=== PATIENT | female | born 1950 | race Caucasian/White ===

== ENCOUNTER → 2018-03-21 09:14 | Outpatient (CLI) | payer OTHER, SELFPAY | PROVIDERS: Visit Provider Physical Medicine & Rehabilitation | DX: M47.27 Other spondylosis with radiculopathy, lumbosacral region (principal); Z53.20 Procedure and treatment not carried out because of patient's decision for unspecified reasons; F40.240 Claustrophobia; M43.16 Spondylolisthesis, lumbar region; M48.00 Spinal stenosis, site unspecified ==

== ENCOUNTER 2018-04-25 09:01 | Outpatient (CLI) | payer OTHER, SELFPAY ==
[2018-04-25] VITALS (7 sets, daily range): BP systolic 143–174; BP diastolic 64–94; PULSE 88–104; RESP 16–20; TEMP 36.5; O2SAT 96–99
--- NOTE | 2018-04-25 09:02 | DI.RAD.S_ITS ---
PROCEDURE: PAIN L/SI FACET INJ/BLK 1STL INDICATIONS: Lumbosacral spondylosis FINDINGS: Fluoroscopic spot filming was performed to verify placement of spinal needles at the right-sided L4-5 and L5-S1 facet joint level(s), as labeled on the films. Appropriate location(s) of the needle tip(s) was confirmed by injection of iodinated contrast. IMPRESSION: Successful facet joint localization on the right at L4-5 and L5-S1 for facet injection. Dictated by: Arnoldo Magana M.D. on 04/25/2018 at 10:22 Approved by: Arnoldo Magana M.D. on 04/25/2018 at 10:23
--- NOTE | 2018-04-25 09:22 | P.PCN_ITS ---
Procedures Date/Time Date of procedure: 04/25/18 Time of procedure: 09:20 General Procedure description: PREOP DIAGNOSIS 1. FACET ARTHROPATHY, 2. AXIAL LBP, 3. MULTILEVEL DDD, POST OP DIAGNOSIS 1. FACET ARTHROPATHY, 2. AXIAL LBP, 3. MULTILEVEL DDD, PROCEDURES 1. FLUORSCOPICALLY GUIDED CONTRAST CONTROLLED FACET JOINT INJECTIONS RIGHT L4/5, L5/S1 SURGEON: Bo Roland, DO INDICATIONS Sofía is referred for treatment of right Axial LBP FINDINGS Multilevel Facet Arthropathy with Clinically significant axial LBP DESCRIPTION OF PROCEDURE Fluoroscopically guided, contrast-controlled right L4/5, L5/S1 facet joint injections. Following denial of allergy and review of potential side effects and complications, including, but not necessarily limited to, infection, allergic reaction, local tissue breakdown, stroke, temporary or permanent nerve injury, paralysis, and possible , the patient indicated that the patient understood and agreed to proceed. An informed consent document was signed by the patient, witnessed by a nurse, and placed in the patient's chart. Additionally, other treatment options including medications, modalities, and physical therapy were reviewed with the patient. After review of previous anaesthesic history and IV conscious sedation the patient was deemed safe to proceed with todays procedure with IV conscious sedation as ASA class II designation. Safety time-out was performed to confirm patient ID, procedure to be performed and site of procedure. IV sedation was accomplished with a combination of 3mg of Versed and 50mcg of Fentanyl was administered by the RN after DO order, titrated to patient comfort during the course of the procedure while the patient remained responsive to all verbal commands. In the prone position, following sterile prep and drape of the lumbar region, the posterior aspect of the right L4/5, L5/S1 facet joints were identified fluoroscopically. The skin was anesthetized via a 25-gauge 1.5-inch needle with 1% lidocaine solution into the corresponding facet joints. At this point, a 22- gauge 3.5-inch spinal needle was atraumatically introduced and advanced under fluoroscopic guidance into the corresponding facet joints. Following negative aspiration, injections of approximately 0.2-cc of Isovue 200 confirmed interarticular placement without vascular uptake. Radiological data, including multiple fluoroscopic views of the lumbosacral spine, reveal a spinal needle at the right L4/5, L5/S1 facet joints. Subsequent views show flow of contrast material both superiorly and inferiorly within the joint space without vascular or intrathecal uptake. At this point, a total of 0.5 cc including a mixture of 0.25cc Marcaine and 0.25cc betamethasone was injected without complication into each of the corresponding facet joints. The procedure tolerated the procedure well without signs or symptoms of complications prior to transfer to the recovery area continued monitoring without incident. The patient was then transferred to the recovery area where they were observed for an appropriate period of time after the injection. The patient reported a VAS score of 7 prior to the procedure and a post-procedure VAS of 0. Total Fluoroscopy Time: 12.7 seconds Total Conscious Sedation Time: 24min POST OP INSTRUCTIONS The patient was provided a Pain Log to continue to record their response to the target-specific procedure prior to follow-up visit with their referring physician. Additionally, specific post-injection care instructions and a contact number to our office were provided if concerns arise regarding possible complications associated with the procedure are suspected. Bo Roland, Complications: none
[2018-04-25] MEDS: MIDAZOLAM 5 MG/5 ML VIAL IV (09:25)
[2018-04-25] MEDS: fentaNYL 100 MCG/2 ML INJ 50 MCG IV (09:30)
[2018-04-25] MEDS: LIDOCAINE 1% 20 ML INJ 10 ML INJ (09:39)
[2018-04-25] MEDS: BUPIVACAINE 0.5% (PF) VIAL 2 ML INJ (09:39)
[2018-04-25] MEDS: IOPAMIDOL 15 ML VIAL 3 ML INJ (09:39)
[2018-04-25] MEDS: BETAMETHASONE 30 MG/5 ML MDV 12 MG INJ (09:40)
--- NOTE | 2018-04-25 09:49 | PC.NURSE ---
ACCEPTED CARE OF PT IN STABLE CONDITION IN POST PROC AREA.
--- NOTE | 2018-04-25 09:51 | PC.NURSE ---
pt tolerated procedure, assisted pt off table with 2 person standby assist. Transferred pt to pre procedure room via wheelchair for resumed monitoring with Era PUENTES.
== END 2018-04-25 10:30 | disposition home or self-care (01) ==
LOC: RAD 09:02
PROVIDERS: Visit Provider Physical Medicine & Rehabilitation
DX: M47.817 Spondylosis without myelopathy or radiculopathy, lumbosacral region (principal); M47.816 Spondylosis without myelopathy or radiculopathy, lumbar region; M54.5 Low back pain; M51.36 Other intervertebral disc degeneration, lumbar region
CPT/HCPCS: 64493; 64494; 99152; J0702; J2250; J3010

== ENCOUNTER 2019-03-05 10:39 | Outpatient (CLI) | payer OTHER, SELFPAY ==
[2019-03-05] VITALS (11 sets, daily range): BP systolic 128–171; BP diastolic 74–89; PULSE 75–97; RESP 16–18; TEMP 37.1; O2SAT 95–100
--- NOTE | 2019-03-05 10:41 | DI.RAD.S_ITS ---
PROCEDURE: PAIN L/SI FACET INJ/BLK 1STL INDICATIONS: SPONDYLOSIS FINDINGS: Fluoroscopic spot filming was performed to verify placement of spinal needles at the L4, L5 and S1 level(s), as labeled on the films. Appropriate location(s) of the needle tip(s) was confirmed by injection of iodinated contrast. IMPRESSION: Fluoroscopy for pain management. Dictated by: Monie Ghosh M.D. on 03/05/2019 at 12:17 Approved by: Monie Ghosh M.D. on 03/05/2019 at 12:18
[2019-03-05] MEDS: MIDAZOLAM 5 MG/5 ML VIAL IV (11:25)
--- NOTE | 2019-03-05 11:25 | PC.NURSE ---
SEDATION MEDS 2 VERSED GIVEN TO PT AT 1125.
[2019-03-05] MEDS: IOPAMIDOL 15 ML VIAL 3 ML INJ (11:29)
--- NOTE | 2019-03-05 11:29 | PC.NURSE ---
ASSISTING PT OFF TABLE AND TRANSPORTING TO POST PROC AREA IN STABLE CONDITION. PASSING RN CARE OF PT OFF TO DIAMOND Clark RN.
[2019-03-05] MEDS: BUPIVACAINE 0.5% (PF) VIAL 2 ML INJ (11:30)
--- NOTE | 2019-03-05 11:36 | P.PCN_ITS ---
Procedures Date/Time Date of procedure: 03/05/19 Time of procedure: 11:36 General Procedure description: POST OP DIAGNOSIS 1. FACET ARTHROPATHY PROCEDURES 1. Right L4, L5 and S1 MB BLOCKS PHYSICIAN: DO NATHAN Davenport Sofía is referred for treatment of Right Axial LBP. DESCRIPTION OF PROCEDURE Fluoroscopically guided, contrast-controlled right L4, L5 and S1 medial branch blocks with 0.5cc of 0.5% Marcaine. Following review of allergy and review of potential side effects and complications, including, but not necessarily limited to, infection, allergic reaction, local tissue breakdown, nerve injury, paralysis, stroke and possible , the patient indicated that the patient understood and agreed to proceed. An informed consent document was signed by the patient, witnessed by a nurse, and placed in the patient's chart. After review of previous anaesthesic history and IV conscious sedation the patient was deemed safe to proceed with todays procedure with IV conscious sedation as ASA class II designation. Safety time-out was performed to confirm patient ID, procedure to be performed and site of procedure. IV sedation was accomplished with a combination of 2mg of Versed was administered by the RN afte r DO order, titrated to patient comfort during the course of the procedure while the patient remained responsive to all verbal commands In the prone position, following sterile prep and drape of the lumbar region, the right L4, L5 and S1 anatomical location of the medial branch of the dorsal ramus was identified fluoroscopically. Subsequently an anesthetic skin wheal using 1% lidocaine solution was initiated at each of the anatomical spots. Subsequently then a 22-gauge 3.5-inch spinal needle was atraumatically introduced and advanced under fluoroscopic guidance at each of the corresponding sites at the right L4, L5 and S1 MB. After negative aspiration, 0.2 cc of Isovue 200 was injected, confirming placement without vascular or intrathecal uptake. Subsequently then 0.5 cc of 0.5% Marcaine solution was injected at each of the corresponding sites at the right L4, L5 and S1 medial branch locations. The patient tolerated the procedure well without signs or symptoms of complications. The procedure tolerated the procedure well without signs or symptoms of complications prior to transfer to the recovery area continued monitoring without incident. Post-procedure, the patient was monitored initiating provocative activities to measure the amount of relief from block of the facetogenic pain. The patient reported a VAS of 7 prior to the procedure and a post-procedure VAS of 1. It has been a pleasure to assist in the diagnostic and therapeutic care of your patient. Total Fluoroscopy Time: 24.8 seconds Total Conscious Sedation Time: 24min POST OP INSTRUCTIONS The patient was provided with a Pain Log to complete over the next several hours and subsequent days prior to the patient's follow up with the ordering physician. If the patient has watershed coordinator relief to the solution applied, then they may be a candidate for medial branch rhizotomy. The patient is aware, was provided, once again, with a Pain Log and will follow up with the referring physician for review and clinical correlation Bo Roland DO Complications: none
--- NOTE | 2019-03-05 12:09 | PC.NURSE ---
Post procedure discharge note: patient arrived awake and slightly drowsy at 1137. VSS on arrival at 1139. No complaints of pain 0/10. Denied any unusual numbness or tingling to lower extremities. Discharge instructions reviewed prior to discharge with patient. Discharged to home w/c to car with daughter and grandchildren.
== END 2019-03-05 11:59 | disposition home or self-care (01) ==
LOC: RAD 10:40
PROVIDERS: Visit Provider Physical Medicine & Rehabilitation
DX: M47.816 Spondylosis without myelopathy or radiculopathy, lumbar region (principal); M47.817 Spondylosis without myelopathy or radiculopathy, lumbosacral region; M54.5 Low back pain
CPT/HCPCS: 64493; 64494; 99152; J2250

== ENCOUNTER → 2020-04-14 13:04 | Outpatient (CLI) | payer OTHER, SELFPAY ==
[2020-04-14 14:53] LABS: COVID19 -Nasal RAPID Negative (Negative)
== END ==
PROVIDERS: PCP Family Medicine; Visit Provider Physical Medicine & Rehabilitation
DX: Z20.822 Contact with and (suspected) exposure to COVID-19 (principal)
CPT/HCPCS: 87635; C9803

== ENCOUNTER 2020-04-16 10:28 | Outpatient (CLI) | payer OTHER, SELFPAY ==
[2020-04-16] VITALS (11 sets, daily range): BP systolic 118–138; BP diastolic 57–82; PULSE 81–90; RESP 10–18; TEMP 36.6; O2SAT 95–100
--- NOTE | 2020-04-16 10:29 | DI.RAD.S_ITS ---
PROCEDURE: PAIN L/S MED/LAT N RFA INDICATIONS: SPONDYLOSIS COMPARISON: Outside Film, CR, XR LUMBAR SPINE 2 OR 3 VIEWS, 01/20/2020, 14:03. FINDINGS: Fluoroscopic spot filming was performed to verify placement of spinal needles on the right at the L4, L5, and S1 level(s), as labeled on the films. IMPRESSION: Intraprocedural examination within normal limits. Dictated by: Adam Reynoso M.D. on 04/16/2020 at 13:17 Approved by: Adam Reynoso M.D. on 04/16/2020 at 13:17
[2020-04-16] MEDS: fentaNYL 100 MCG/2 ML INJ 50 MCG IV (12:02)
[2020-04-16] MEDS: MIDAZOLAM 5 MG/5 ML VIAL IV (12:07)
[2020-04-16] MEDS: BUPIVACAINE 0.5% (PF) VIAL 5 ML INJ (12:09)
[2020-04-16] MEDS: LIDOCAINE 1% 20 ML 10 ML INJ (12:09)
--- NOTE | 2020-04-16 12:26 | P.PCN_ITS ---
Date/Time/Diagnoses Date of procedure: 04/16/20 Time of procedure: 12:26 Pre-procedure diagnosis: 1. RECALCITRANT FACET ARTHROPATHY Post-procedure diagnosis: same Procedure Notes Procedure: 1. RIGHT L4 AND L5 MEDIAL BRANCH RADIOFREQUENCY NEUROTOMY AND RIGHT S1 DORSAL RAMUS BRANCH RADIOFREQUENCY NEUROTOMY Indications: Sofía is referred by Dr. Zimmer for treatment of facet arthropathy. Physician: Bo Roland Total Fluoroscopy time (seconds): 10 Total sedation minutes: 18 Complications: none Procedure in detail & Post-procedure care: DESCRIPTION OF PROCEDURE Right L4 and L5 medial branch radiofrequency neurotomy and right S1 dorsal ramus branch radiofrequency neurotomy under fluoroscopy with conscious sedation. The patient is well known to this clinic having undergone previous facet injections with good but temporary relief. The patient has experienced appropriate, concordant relief with previous facet and median branch blocks but the patient's pain has been recalcitrant to further conservative measures. Therefore, based upon the patient's relief and persistent symptoms, the patient is considered an appropriate candidate for facet rhizotomy. All of the patient's questions regarding the risks versus benefits of the procedure, including, but not limited to, bleeding, infection, temporary as well as lasting nerve injury, paralysis, stroke, and , as well treatment alternatives were answered to satisfaction. After review of previous anaesthesic history and IV conscious sedation the patient was deemed safe to proceed with today?s procedure with IV conscious sedation as ASA class II designation. Safety time-out was performed to confirm patient ID, procedure to be performed and site of procedure. IV sedation was accomplished with a combination of 3mg of Versed and 50mcg of Fentanyl was administered by the RN after DO order, titrated to patient comfort during the course of the procedure while the patient remained responsive to all verbal commands. After obtaining informed consent, denial of pertinent drug allergies, as well as being made aware of the potential risks of bleeding, infection, spinal cord trauma, paralysis, temporary and permanent nerve damage, seizure, stroke, and possible , the patient was brought to the fluoroscopy suite and positioned prone on the fluoroscopy table. The lumbar region was prepped with Betadine and covered with a fenestrated drape in the usual sterile fashion. Appropriate monitors applied including pulse oximeter, pulse, and blood pressure for regular monitoring throughout the procedure. After local infiltration using 1% lidocaine, under fluoroscopic guidance, a 10- cm RF insulated needle with a 10-mm active tip was positioned parallel to the junction of the right sacral ala and the superior articulating process where the S1 dorsal ramus resides. Needle placement was confirmed with sensory stimulation at 50 Hz, with motor stimulation of .5v on the right which produced local stimulation without radicular component. The stimulation was then increased to 2v with, once again, only local multifidus stimulation without radicular component. This was then followed by two discreet lesions performed at 80 degrees Celsius for 90 seconds each. The needle was then removed and the identical procedure was performed along the length of the right L5 medial branch with motor stimulation at .7v on the right. The identical procedure was once again performed along the length of the right L4 medial branch with motor stimulation of .5v on the right. The patient tolerated the procedure well without signs or symptoms of complications prior to transfer to the recovery area continued monitoring without incident. The patient was then transferred to the recovery area where they were observed for an appropriate period of time after the injection. The patient was then transferred to the recovery area where they were observed for an appropriate period of time after the injection. The patient reported a VAS score of 8 prior to the procedure and a post- procedure VAS of 0. POST OP INSTRUCTIONS The patient was provided a Pain Log to continue to record the patient's response to the target-specific procedure prior to the patient's follow-up visit with the referring physician. Additionally, specific post-injection care instructions and a contact number to our office were provided if concerns arise regarding possible complications associated with the procedure are suspected.
== END 2020-04-16 12:38 | disposition home or self-care (01) ==
PROVIDERS: PCP Family Medicine; Referring Provider Physical Medicine & Rehabilitation; Visit Provider Physical Medicine & Rehabilitation
DX: M47.816 Spondylosis without myelopathy or radiculopathy, lumbar region (principal); M47.817 Spondylosis without myelopathy or radiculopathy, lumbosacral region
CPT/HCPCS: 64635; 64636; 99152; J2250; J3010

== ENCOUNTER → 2020-07-06 11:13 | Outpatient (CLI) | payer OTHER, SELFPAY ==
[2020-07-06 17:06] LABS: COVID19 -Nasal RAPID Negative (Negative)
== END ==
PROVIDERS: PCP Family Medicine; Visit Provider Physical Medicine & Rehabilitation
DX: Z20.822 Contact with and (suspected) exposure to COVID-19 (principal)
CPT/HCPCS: 87635; C9803

== ENCOUNTER 2020-07-07 10:46 | Outpatient (CLI) | payer OTHER, SELFPAY ==
[2020-07-07] VITALS (8 sets, daily range): BP systolic 130–156; BP diastolic 60–76; PULSE 76–89; RESP 12–20; TEMP 36.1–36.4; O2SAT 95–99
--- NOTE | 2020-07-07 10:48 | DI.RAD.S_ITS ---
PROCEDURE: PAIN L INTERLAMINAR/CAUDAL INJ INDICATIONS: SPONDYLOSIS COMPARISON: Outside Film, CR, XR LUMBAR SPINE 2 OR 3 VIEWS, 01/20/2020, 14:03. FINDINGS: Fluoroscopic spot filming was performed to verify placement of spinal needles at the L5-S1 level(s), as labeled on the films. Appropriate location(s) of the needle tip(s) was confirmed by injection of iodinated contrast. IMPRESSION: Fluoroscopy for pain management. Dictated by: Monie Ghosh M.D. on 07/07/2020 at 12:22 Approved by: Monie Ghosh M.D. on 07/07/2020 at 12:22
[2020-07-07] MEDS: fentaNYL 100 MCG/2 ML INJ 50 MCG IV (11:21)
[2020-07-07] MEDS: MIDAZOLAM 5 MG/5 ML VIAL IV (11:21)
[2020-07-07] MEDS: methylPREDNISolone acetate 80 MG/ML VIAL INJ (11:24)
[2020-07-07] MEDS: DEXAMETHASONE 10 MG/ML VIAL 20 MG INJ (11:24)
[2020-07-07] MEDS: BUPIVACAINE 0.25% (PF) VIAL 2 ML INJ (11:25)
[2020-07-07] MEDS: IOPAMIDOL 15 ML VIAL 3 ML INJ (11:25)
--- NOTE | 2020-07-07 11:38 | PM.PROC.IR.1 ---
Date/Time/Diagnoses Date of procedure: 07/07/20 Time of procedure: 11:38 Pre-procedure diagnosis: 1. HNP WITH RADICULAR FEATURES, 2. MULTILEVEL CENTRAL STENOSIS, Post-procedure diagnosis: same Procedure Notes Procedure: 1. FLUOROSCOPICALLY GUIDED CONTRAST CONTROLLED INTERLAMINAR EPIDURAL STEROID INJECTION - L5/S1 Indications: Sofía is referred by Dr. Zimmer for treatment of Bilateral Foraminal Stenosis L>R LE symptoms. Physician: Bo Roland Total Fluoroscopy time (seconds): 12 Total sedation minutes: 14 Complications: none Procedure in detail & Post-procedure care: FINDINGS Multilevel Central Spinal Stenosis with Nerve Root Compression DESCRIPTION OF PROCEDURE Fluoroscopically guided, contrast-controlled L5/S1 translaminar epidural steroid injection. Following review of allergy and review of potential side effects and complications, including, but not necessarily limited to, infection, allergic reaction, local tissue breakdown, temporary as well as permanent nerve injury, paralysis, stroke and possible , the patient indicated that the patient understood and agreed to proceed. An informed consent document was signed by the patient, witnessed by a nurse, and placed in the patient's chart. Additionally, other treatment options including modalities, medications, and physical therapy were reviewed with the patient. After review of previous anaesthesic history and IV conscious sedation the patient was deemed safe to proceed with today?s procedure with IV conscious sedation as ASA class II designation. Safety time-out was performed to confirm patient ID, procedure to be performed and site of procedure. IV sedation was accomplished with a combination of 2mg of Versed and 50mcg of Fentanyl administered by the RN after DO order, titrated to patient comfort during the course of the procedure while the patient remained responsive to all verbal commands. In the prone position, following sterile prep and drape of the lumbar region, the L5/S1 translaminar space was identified fluoroscopically. The skin was anesthetized via a 25-gauge, 1.5-inch needle with 1% lidocaine solution. At this point, a 22-gauge short bevel spinal needle was atraumatically introduced and advanced under fluoroscopic guidance into the region of the L5/S1 translaminar space. Depth was confirmed on lateral view. Radiological data, including multiple fluoroscopic views of the lumbar spine, reveal a spinal needle at the L5/S1 translaminar space. Lateral views then show placement of the needle in the epidural space. Subsequent views show contrast material flowing superiorly and inferiorly in the epidural space. No vascular or intrathecal uptake is observed. At this point, using loss of resistance technique with saline and air, the epidural space was entered. This was confirmed following negative aspiration with injection of approximately 1.5cc of Isovue 200, showing excellent epidural flow without vascular or intrathecal uptake. At this point, 1 cc of 1% lidocaine solution combined with 3cc or 20mg of dexamethasone and 80mg of depo medrol was injected without incident. The patent tolerated the procedure without signs of symptoms of complications prior to transfer to the recovery area for further monitoring. The patient was then transferred to the recovery area where they were observed for an appropriate period of time after the injection. The patient reported a VAS score of 6 prior to the procedure and a post-procedure VAS of 0. POST OP INSTRUCTIONS The patient was provided a Pain Log to continue to record their response to the target-specific procedure prior to follow-up visit with their referring physician. Additionally, specific post-injection care instructions and a contact number to our office were provided if concerns arise regarding possible complications associated with the procedure are suspected.
== END 2020-07-07 11:54 | disposition home or self-care (01) ==
PROVIDERS: PCP Family Medicine; Referring Provider Physical Medicine & Rehabilitation; Visit Provider Physical Medicine & Rehabilitation
DX: M51.17 Intervertebral disc disorders with radiculopathy, lumbosacral region (principal); M48.07 Spinal stenosis, lumbosacral region
CPT/HCPCS: 62323; 99152; J0702; J1040; J1100; J2250; J3010

== ENCOUNTER → 2020-10-19 08:31 | Outpatient (CLI) | payer OTHER, SELFPAY ==
[2020-10-19 14:15] LABS: COVID19 -Nasal RAPID Negative (Negative)
== END ==
PROVIDERS: PCP Family Medicine; Visit Provider Physical Medicine & Rehabilitation
DX: Z20.822 Contact with and (suspected) exposure to COVID-19 (principal)
CPT/HCPCS: 87635; C9803

== ENCOUNTER 2020-10-20 13:34 | Outpatient (CLI) | payer OTHER, SELFPAY ==
[2020-10-20] VITALS (9 sets, daily range): BP systolic 127–165; BP diastolic 59–75; PULSE 72–82; RESP 11–20; TEMP 36.4; O2SAT 95–99
--- NOTE | 2020-10-20 13:37 | DI.RAD.S_ITS ---
PROCEDURE: PAIN L INTERLAMINAR/CAUDAL INJ INDICATIONS: SPONDYLOSIS COMPARISON: [facility], XA, PAIN L INTERLAMINAR/CAUDAL INJ, 07/07/2020, 11:25. FINDINGS: Fluoroscopic spot filming was performed to verify placement of spinal needles at the L5-S1 interlaminar space level(s), as labeled on the films. Appropriate location(s) of the needle tip(s) was confirmed by injection of iodinated contrast. IMPRESSION: Access needle at the L5-S1 interlaminar space for interlaminar epidural steroid injection Dictated by: Avril Yeung MD, PhD on 10/20/2020 at 16:18 Approved by: Avril Yeung MD, PhD on 10/20/2020 at 16:18
[2020-10-20] MEDS: MIDAZOLAM 5 MG/5 ML VIAL IV (15:25)
[2020-10-20] MEDS: fentaNYL 100 MCG/2 ML INJ 50 MCG IV (15:25)
[2020-10-20] MEDS: DEXAMETHASONE 10 MG/ML VIAL 20 MG INJ (15:30)
[2020-10-20] MEDS: IOPAMIDOL 15 ML VIAL 3 ML INJ (15:30)
[2020-10-20] MEDS: BUPIVACAINE 0.25% (PF) VIAL 2 ML INJ (15:30)
[2020-10-20] MEDS: methylPREDNISolone acetate 80 MG/ML VIAL INJ (15:31)
--- NOTE | 2020-10-20 15:38 | PM.PROC.IR.1 ---
Date/Time/Diagnoses Date of procedure: 10/20/20 Time of procedure: 15:38 Pre-procedure diagnosis: 1. HNP WITH RADICULAR FEATURES, 2. MULTILEVEL CENTRAL STENOSIS, Post-procedure diagnosis: same Procedure Notes Procedure: 1. FLUOROSCOPICALLY GUIDED CONTRAST CONTROLLED INTERLAMINAR EPIDURAL STEROID INJECTION - L5/S1 Indications: Sofía is referred by Dr. Zimmer for treatment of Bilateral Foraminal Stenosis L>R LE symptoms. Physician: Bo Roland Total Fluoroscopy time (seconds): 6 Total sedation minutes: 10 Complications: none Procedure in detail & Post-procedure care: FINDINGS Multilevel Central Spinal Stenosis with Nerve Root Compression DESCRIPTION OF PROCEDURE Fluoroscopically guided, contrast-controlled L5/S1 translaminar epidural steroid injection. Following review of allergy and review of potential side effects and complications, including, but not necessarily limited to, infection, allergic reaction, local tissue breakdown, temporary as well as permanent nerve injury, paralysis, stroke and possible , the patient indicated that the patient understood and agreed to proceed. An informed consent document was signed by the patient, witnessed by a nurse, and placed in the patient's chart. Additionally, other treatment options including modalities, medications, and physical therapy were reviewed with the patient. After review of previous anaesthesic history and IV conscious sedation the patient was deemed safe to proceed with today?s procedure with IV conscious sedation as ASA class II designation. Safety time-out was performed to confirm patient ID, procedure to be performed and site of procedure. IV sedation was accomplished with a combination of 2mg of Versed and 50mcg of Fentanyl administered by the RN after DO order, titrated to patient comfort during the course of the procedure while the patient remained responsive to all verbal commands. In the prone position, following sterile prep and drape of the lumbar region, the L5/S1 translaminar space was identified fluoroscopically. The skin was anesthetized via a 25-gauge, 1.5-inch needle with 1% lidocaine solution. At this point, a 22-gauge short bevel spinal needle was atraumatically introduced and advanced under fluoroscopic guidance into the region of the L5/S1 translaminar space. Depth was confirmed on lateral view. Radiological data, including multiple fluoroscopic views of the lumbar spine, reveal a spinal needle at the L5/S1 translaminar space. Lateral views then show placement of the needle in the epidural space. Subsequent views show contrast material flowing superiorly and inferiorly in the epidural space. No vascular or intrathecal uptake is observed. At this point, using loss of resistance technique with saline and air, the epidural space was entered. This was confirmed following negative aspiration with injection of approximately 1.5cc of Isovue 200, showing excellent epidural flow without vascular or intrathecal uptake. At this point, 1 cc of 1% lidocaine solution combined with 3cc or 20mg of dexamethasone and 80mg of depo medrol was injected without incident. The patent tolerated the procedure without signs of symptoms of complications prior to transfer to the recovery area for further monitoring. The patient was then transferred to the recovery area where they were observed for an appropriate period of time after the injection. The patient reported a VAS score of 6 prior to the procedure and a post-procedure VAS of 0. POST OP INSTRUCTIONS The patient was provided a Pain Log to continue to record their response to the target-specific procedure prior to follow-up visit with their referring physician. Additionally, specific post-injection care instructions and a contact number to our office were provided if concerns arise regarding possible complications associated with the procedure are suspected.
== END 2020-10-20 16:05 | disposition home or self-care (01) ==
LOC: RAD 13:35
PROVIDERS: PCP Family Medicine; Referring Provider Physical Medicine & Rehabilitation; Visit Provider Physical Medicine & Rehabilitation
DX: M51.17 Intervertebral disc disorders with radiculopathy, lumbosacral region (principal); M48.07 Spinal stenosis, lumbosacral region
CPT/HCPCS: 62323; 99152; J0702; J1040; J1100; J2250; J3010

== ENCOUNTER → 2022-03-18 12:00 | Outpatient (CLI) | payer OTHER, SELFPAY ==
[2022-03-18 13:39] LABS: Add Manual Diff / Slide Review NO; Basophils Absolute Auto 0 /uL (0-100); Basophils Percent Auto 0.5 % (0-2); Eosinophils Absolute Auto 200 /uL (0-450); Eosinophils Percent Auto 2.6 % (2-4); Hematocrit 41.8 % (36-46); Hemoglobin 13.9 g/dL (12.0-16.0); Lymphocytes Absolute Auto 2100 /uL (1100-4500); Lymphocytes Percent Auto 33.4 % (25-40); Mean Corpuscular HGB Conc 33.3 % (30-36); Mean Corpuscular Hemoglobin 30.9 PG (26-34); Mean Corpuscular Volume 92.6 fL (80-100); Monocytes Absolute Auto 600 /uL (0-900); Monocytes Percent Auto 9.1 % (3-14); Neutrophils Absolute Auto 3400 /uL (1500-7000); Neutrophils Percent Auto 54.4 % (50-75); Platelet Count 259 X10^3/uL (150-400); Red Blood Cell Count 4.51 X10^6/uL (4.0-5.2); Red Cell Distribution Width 12.8 % (11.6-14.8); White Blood Cell Count 6.3 X10^3/uL (4.5-11.0)
[2022-03-18 14:03] LABS: Blood Urea Nitrogen 20 mg/dL (7-17); Calcium 9.9 mg/dL (8.4-10.2); Carbon Dioxide 30 mmol/L (22-32); Chloride 99 mmol/L (98-107); Estimated Glomerular Filt Rate > 60 mL/min (>60); Glucose 106 mg/dL (80-110); HEMOLYSIS < 15 (0-50); Potassium 4.3 mmol/L (3.4-5.1); Sodium 139 mmol/L (137-145)
== END ==
PROVIDERS: PCP Family Medicine; Referring Provider Orthopaedic Surgery Orthopaedic Surgery of the Spine; Visit Provider Orthopaedic Surgery Orthopaedic Surgery of the Spine
DX: Z01.818 Encounter for other preprocedural examination (principal); R73.9 Hyperglycemia, unspecified; Z01.812 Encounter for preprocedural laboratory examination
CPT/HCPCS: 36415; 80048; 83036; 85025; 93005

== ENCOUNTER 2022-04-18 06:18 | Inpatient (IN) | payer OTHER, SELFPAY ==
[2022-04-14 10:45] VITALS: BMI 41.5
[2022-04-18] VITALS (11 sets, daily range): BP systolic 110–168; BP diastolic 52–91; PULSE 95–120; RESP 13–22; TEMP 36.6–37.2; O2SAT 91–100; BMI 40.0
[2022-04-18 07:10] LABS: COVID19 -Nasal RAPID Negative (Negative)
[2022-04-18] MEDS: LACTATED RINGERS 1,000 ML 42 ML IV ×3 (07:15→12:27)
--- NOTE | 2022-04-18 07:36 | PM.PREOP ---
Pre-operative Note COVID-19 COVID-19 status: Negative Result date/Date tested (Pos, Neg/Pending): 04/17/22 Criteria for continued procedure: Expected advancement of disease process, Possibility delay results in more complex future surgery or treatment, Increased loss of function, Continuing or worsening of significant or severe pain, Deterioration of the patient's condition or overall health and Delay expected to result in less-positive ultimate med/surg outcome Interval Note History & Physical reviewed/Exam performed by Physician: Yes Changes to H&P: No
[2022-04-18] MEDS: CEFAZOLIN 2 GM/100 ML PREMIX 100 ML IV ×2 (07:50→16:12)
--- NOTE | 2022-04-18 08:29 | SUR.OPER ---
Prone on spine table, head in foam head support, padded chest and pelvic supports, gel pad at knees, lower legs supported by pillows; nipples, genitalia and toes free of pressure, arms secured on foam padded arm boards at <90 degrees abduction. Tape over blanket at thigh secured to table.
[2022-04-18] MEDS: BUPIVACAINE 0.25% (PF) 30 ML, EPINEPHrine 0.3 MG INJ (08:34)
[2022-04-18] MEDS: BUPIVACAINE LIPOSOME 266 MG/20 ML VIAL INJ (08:36)
--- NOTE | 2022-04-18 11:35 | DI.RAD.S_ITS ---
PROCEDURE: XR LUMBAR SPINE 2-3V INDICATIONS: L4-5, L5-S1 TLIF TECHNIQUE: Fluoroscopic images were obtained during an operative procedure and submitted for interpretation following the completion of the procedure. COMPARISON: [facility], CT, CT LUMBAR SPINE WITHOUT CONTRAST, 02/23/2022, 10:44. [facility], MR, MR LUMBAR SPINE WITHOUT CONTRAST, 11/19/2021, 16:31. FINDINGS: These fluoroscopic images were performed for intraoperative localization. On these images, postoperative hardware has been placed, L4 through S1, with bilateral pedicle screws and vertical fixation rods. Disc spacers are seen. Please correlate with intraoperative findings. IMPRESSION: Normal intraoperative examination. Dictated by: Adam Reynoso M.D. on 04/18/2022 at 10:56 Approved by: Adam Reynoso M.D. on 04/18/2022 at 10:57
--- NOTE | 2022-04-18 11:55 | PM.OP.1 ---
Operative Date/Time/Diagnoses Date of procedure: 04/18/22 Time of procedure: 07:40 Pre-op diagnosis: 1. L4-5, L5-S1 spinal stenosis 2. Lumbar scoliosis 3. Lumbar spondylosis with radiculopathy Post-op diagnosis: same Procedure & Clinicians Procedure: 1. L4-5, L5-S1 Postero-lateral and posterior interbody fusion 2. L4-5, L5-S1 interbody cage placement. 3. L4-5, L5-S1 decompressive laminectomy with bilateral facetecomies 4. L4-5, L5-S1 Posterior segmental instrumentation 5. [place] of bone marrow from iliac crest 6. Utilization of microsurgical technique and operating microscope 7. Utilization of robotic assisted navigation Same procedure as scheduled: Yes Indications: Patient has been having chronic back pain and worsening lumbar radiculopathy. Patient failed multiple conservative management with worsening pain weakness and numbness in her lower extremity. Patient has been having difficulty performing activity of daily living. After discussing risks benefits of treatment options, patient elected proceed with surgery. Surgeon: Julianne Rueda Garment Patternmaker: Newton Ruiz Click Yes if Unassisted: No Anesthesia Type: General Operative Notes Closure Type: primary Specimen(s): none sent Prosthetic devices, grafts, tissues, transplants, or devices: Globus CREO MIS screws, Rise cages Applied: catheter Estimated Blood Loss (mL): 150 Blood products transfused: none Procedure in detail: Patient was seen in the preoperative area. Risks and benefits of the surgery was discussed with the patient. Informed consent was obtained from the patient and placed in the chart. Surgical site was marked. Patient was taken to the operative room. General anesthesia was administered. Prophylactic antibiotic was given to the patient less than 30 min before the incision was made. Patient was placed into a prone position on the Hiram table. Patient's back was then prepped and draped in the sterile fashion. Time-out was performed at this time. After patient was prepped and draped, patient's PSIS was palpated and marked bilaterally. Small 1 cm incision was made over the PSIS for placement of the reference probes. Two trocar was placed into the PSIS 1 on each side. The reference probe was attached to the trocar of the reference apparatus. At this time the C-arm imaging was used to confirm AP and lateral of L4-L5, L5-S1 vertebrae and merged the C-arm imaging using the Spark Etail robotic navigation system with the CT of the lumbar spine. After successful merging was completed and confirmed, skin marker was used to amy out the skin incision using the Spark Etail robotic arm. Bilateral incision was made at this time. Pre templated trajectory was used and guided using the Spark Etail robotic navigation system for bilateral L4, L5, S1 pedicle screw placement. This was done by using the robotic arm to guide the high-speed bur to make a cortical entry point. Next a drill was placed also using the robotic arm and guided using the navigation system drilling partially through bilateral L4, L5 and S1 pedicles. Next L4, L5, S1 pedicle screws it was pre templated and measured was placed onto the power tour bus driver and inserted into the pedicles bilaterally. After all 6 screws were placed C-arm imaging was taken of both AP and lateral to confirm the placement. Excellent placement of the screws were confirmed and a matched precisely with the pre planned screw placement using the navigation system. MARs retractor was inserted using Ti-Bi Technologyivation guidence. Globus MARS retractors was placed inside the incision and docked onto the L4 and L5 lamina. Using microsurgical technique and operating microscope, a L4, L5 laminectomy and L4-5, L5-S1 facetectomy was performed using a Kerrison rongeur. Patient was found have severe lateral recess and neural foramen stenosis which was fully decompressed after the laminectomy facetectomy. More than 75% of the facets were removed during the process of decompression rendering L4-5, L5-S1 level grossly unstable and required a fusion procedure at the same time. The disc space at L4-5, L5-S1 was identified, and a total diskectomy was performed at L4-5, L5-S1 level. The endplates were decorticated using a rasp and shaver. The total diskectomy and decortication was performed at L4-5, L5-S1 level in order to to accomplish a L4-5, L5-S1 fusion. The local bone from the laminectomy and facetectomy was saved for local bone grafting. After the total diskectomy and decortication was completed, Trifecta bone graft material was combined with local bone that was harvested earlier. At this time, a separate skin is incision was made over the iliac crest. A Jamshidi needle was inserted into the iliac crest through a separate skin incision. 5 cc of bone marrow aspiration was obtained through the separate skin incision using a Jamshidi needle from the iliac crest. The bone marrow aspiration was combined with local bone and the Trifecta bone grafting material. The bone grafting material was placed into the L4-5, L5-S1 interbody space along with a expandable cage. The cage was expanded to its maximum height using the torque limiting screwdriver. The disc preparation as well as the cage insertion were also performed under navigation guidance. After the cage was placed, AP and lateral C-arm imaging was taken to confirm placement of the cage and excellent position was confirmed. Globus MARS retractor was inserted and docked onto the L4-5, L5-S1 posterolateral gutter on the right side. Using the power drill, posterior-lateral decortication was performed at L4-5, L5-S1 level until bleeding cortical bone was identified. The remaining bone grafting material was placed into the L4-5, L5-S1 posterior lateral gutter he order to accomplish posterolateral fusion at the L4-5, L5-S1 level. At this time the tulips were attached to the L4, L5, S1 pedicle screw shanks. After measuring the length of the rods, they were inserted into the tulips of the pedicle screws and locked in place using locking caps and torque limiting screwdriver bilaterally. Total 6 caps and 2 titanium rods was used in order to complete the posterior instrumentation construct. After all the hardware was placed, and confirmed with AP and lateral C-arm imaging, the wound was then irrigated with sterile normal saline and packed with Ray-Chanda gauze for 3 min to accomplish hemostasis. After the gauze was removed the deep fascia was closed with #1 Vicryl suture. The subcutaneous layer was closed with 2-0 Vicryl. The skin was closed with skin steve. Patient tolerated the procedure well. There were no complications. Neuro monitoring system was used to monitor patient's neurologic status throughout entire procedure. There was no disturbance of the neural monitoring signals throughout the case. Complications: none Post-operative Condition: stable Disposition: PACU Plan for aftercare: Admit to inpatient hospital
[2022-04-18] MEDS: HYDROMORPHONE 2 MG INJ IV ×4 (12:24→12:41)
[2022-04-18] MEDS: hydrOXYzine 50 MG/ML INJ IM (12:25)
--- NOTE | 2022-04-18 13:31 | SUR.PHASEI ---
1300: called Dr. Valentin pt at 1300 heart rate went up to 123-125 no c/o of chest discomfort temp 98. tym. require 02 at 4 l n/c. pt on right side for comfort. No further orders
[2022-04-18] MEDS: SODIUM CHLORIDE 0.9% 1,000 ML 100 ML IV (14:09)
[2022-04-18] MEDS: HYDROMORPHONE 0.5 MG INJ IV ×2 (14:09→17:28)
--- NOTE | 2022-04-18 15:19 | OT.IPNOTE ---
Pt asleep and just up from surgery earlier, to check on pt tomorrow for OT eval.
--- NOTE | 2022-04-18 16:26 | PT-IP ANOTE ---
Received PT orders and reviewed the chart. Met briefly with pt who was lying on her side with washcloth on her forehead, trying to sleep. Pt requested PT follow up Monday for evaluation.
--- NOTE | 2022-04-18 19:38 | PC.NURSE ---
admit from PACU: arrived on bed from pacu after TLIF L4-L5- S5-S1. patient is rousable w/ verbal stimulus, falls asleep easily. dressings to spinal incisions are intact, L side dressing has red blood drainage outside the margins of the previous nurses outline. this was reinforced by float nurse. fierro is patent, draining clear brenda urine. pain controlled by PRN hydromorphone IVP. LR at 100/hour. family came by to see patient but she is sleeping.. note left at bedside. report to JOSÉ LUIS tucker RN>
[2022-04-18] MEDS: ACETAMINOPHEN 325 MG TABLET 650 MG PO (20:47)
[2022-04-18] MEDS: OXYCODONE IR 5 MG TABLET 10 MG PO (20:47)
[2022-04-18] MEDS: ATORVASTATIN 20 MG TABLET 10 MG PO (20:48)
[2022-04-18] MEDS: SENNOSIDES 8.6 MG TABLET 17.2 MG PO (20:48)
[2022-04-18] MEDS: DOCUSATE 100 MG CAPSULE PO (20:49)
[2022-04-18] MEDS: CITALOPRAM 10 MG TABLET 40 MG PO (20:49)
[2022-04-18] MEDS: FISH OIL 1,000 MG CAPSULE 1000 MG PO (20:49)
[2022-04-18] MEDS: hydroCHLOROthiazide 25 MG TABLET PO (20:49)
[2022-04-19] VITALS (7 sets, daily range): BP systolic 103–138; BP diastolic 52–107; PULSE 85–96; RESP 17–21; TEMP 36.1–36.9; O2SAT 92–96
[2022-04-19] MEDS: CEFAZOLIN 2 GM/100 ML PREMIX 100 ML IV (00:17)
[2022-04-19] MEDS: SODIUM CHLORIDE 0.9% 1,000 ML 100 ML IV (00:18)
[2022-04-19] MEDS: OXYCODONE IR 5 MG TABLET 10 MG PO ×8 (00:18→22:11)
[2022-04-19 05:33] LABS: Hematocrit 35.9 % (36-46); Hemoglobin 11.9 g/dL (12.0-16.0)
--- NOTE | 2022-04-19 07:43 | P.PN_ITS ---
Subjective Subjective Date Patient Seen: 04/19/22 Time Patient Seen: 07:00 Interval history: Patient is sleeping comfortably in bed this morning. She notes that it was hard to sleep in the hospital overnight with the beeping interruptions. She states that she is more comfortable breathing with oxygen by nasal cannula, currently set at 1.5 L. She is looking forward to working with physical therapy today. Exam Vital Signs (past 8 hours): - 04/19/22 00:05 04/19/22 04:42 Temperature 98 F 97.8 F Pulse Rate 96 H 85 Respiratory Rate 19 21 Blood Pressure 106/52 L 103/56 L Pulse Oximetry 93 96 Oxygen Flow Rate 0 2 Oxygen Delivery Method Nasal Cannula Oxygen Flow Rate 2 Narrative Exam Narrative: Awake, alert, and oriented. Intraoperative bandage with moderate serosanguineous fluid on the left side, minimal on the right. Strength and sensation intact to bilateral lower extremities. Bilateral calves soft, compressible, nontender with no palpable cords or masses. SCDs not intact. Objective Labs 04/19/22 04:46 Labs: Laboratory Results - last 24 hr 04/19/22 04:46 Hgb 11.9 L Hct 35.9 L [facility] Medical History Cervical disc disorder at C6-C7 level with radiculopathy Depression Facet arthropathy, lumbar Heart murmur HLD (hyperlipidemia) HTN (hypertension) Kidney stones Lumbar radiculopathy Neck pain ELENI on CPAP Pre-diabetes Rash (04/14/22) Seasonal allergies Spinal stenosis SVT (supraventricular tachycardia) (~2002) Surgical History History of appendectomy History of bunionectomy of right great toe History of History of hysterectomy History of urologic surgery Hx of colonoscopy Hx of lithotripsy Hx of right cataract extraction Status post right foot surgery [place] teeth removed Social History marital status: household members: family Smoking Status: Never smoker alcohol intake: never Assessment & Plan Post-op Postoperative Procedures: Procedures Operation Date: 04/18/22 07:45 Actual Procedure Side Surgeon p L4-5, L5-S1 TLIF w. posterior instrumentation -Robot Julianne Rueda MD Postoperative day: 1 Postoperative status: doing well Postoperative plan: routine post-op care Postoperative plan narrative: Physical therapy today. Plan to discharge to rehab facility when appropriate as patient has multiple stairs at home, 3 dogs, and no assistance during the day. Quality VTE Deep Vein Thrombosis/Pulmonary Embolism Present on Admission: No
[2022-04-19] MEDS: DOCUSATE 100 MG CAPSULE PO ×2 (09:24→20:28)
--- NOTE | 2022-04-19 11:26 | PT.IIE ---
Current Diagnoses Other spondylosis with radiculopathy, lumbar region (04/18/22) Spinal stenosis, lumbar region with neurogenic claudication (04/18/22) Surgery Performed Operation Date: 04/18/22 07:45 Actual Procedures p L4-5, L5-S1 TLIF w. posterior instrumentation -Robot - Julianne Rueda MD Surgical History (Last Reviewed 04/19/22 @ 07:46 by Loren Hou PA-C) History of appendectomy History of bunionectomy of right great toe History of History of hysterectomy History of urologic surgery Hx of colonoscopy Hx of lithotripsy Hx of right cataract extraction Status post right foot surgery [place] teeth removed Medical History (Last Reviewed 04/19/22 @ 07:46 by Loren Hou PA-C) Cervical disc disorder at C6-C7 level with radiculopathy Depression Facet arthropathy, lumbar Heart murmur HLD (hyperlipidemia) HTN (hypertension) Kidney stones Lumbar radiculopathy Neck pain ELENI on CPAP Pre-diabetes Rash (04/14/22) Seasonal allergies Spinal stenosis SVT (supraventricular tachycardia) (~2002) Physical Therapy Inpatient Evaluation/Re-Eval M1 PT/OT-IP Prior Functional Status Start: 04/18/22 14:51 Freq: NEEDED Status: Active Protocol: Document 04/19/22 11:26 DLM (Rec: 04/19/22 12:25 DLM [id number]) Medical Review Prior Functional Status Medical History Reviewed Yes Diet/Fluid Consistency Regular Communication WFL, wears glasses for distance vision Mobility and Gait Independent without device, able to do stairs, increased back pain with bending over and extended standing Activities of Daily Living and IADL's Independent, she is a retired nurse Prior Functional Level (Other details) She has 3 dogs she cares for. Her adult children live with her but work [employer]. Her grandchildren are in school. She reports having no help during the day at home. Social History Household Members family Living Arrangements House Number of Floors (Floors) Two Floors Number of Stairs To Enter/Railing? 5 steps with bilateral rails, can only reach one at a t gary Home Environment Standard Height Toilet,Walk in Shower Home Equipment Four Wheel Walker,Straight Cane Additional Social History Comment She has 6 steps at the back door where she lets out the dogs without rails, has wall support. She describes 17 steps to second floor of house with landing in the middle. She has full bathroom on first floor and second floor. Her bedroom is on the second floor of the house. She gets out on the left side of the bed at home. M2 PT-IP Current Condition Start: 04/18/22 14:51 Freq: NEEDED Status: Active Protocol: Document 04/19/22 11:26 DLM (Rec: 04/19/22 12:25 DLM [id number]) Physical Therapy Current Condition Current Condition Evaluation Date 04/19/22 Treatment Diagnosis L4-S1 TLIF, impaired gait and back pain Onset Date 04/18/22 M3 PT-IP Subjective Start: 04/18/22 14:51 Freq: NEEDED Status: Active Protocol: Document 04/19/22 11:26 DLM (Rec: 04/19/22 12:25 DLM [id number]) Subjective Physical Therapy Visit Type Type Initial Evaluation Visit Start Time 10:45 Visit Stop Time 11:26 Total Visit Minutes 41 Number of PLASMA TABLE OPERATOR Visits 0 Physical Therapy Visit Comments Patient Comments She does not feel safe to go home at discharge since she will have no one to help during the day and she will not be able to take care of the dogs. Patient Goals She wants to go to SNF rehab to get stronger before returning home Therapy Pain Assessment Pain When Pain Assessed During Mobility Pain Present Pain Present Pain Reported Location neck Intensity 0 Scale Used Numeric (0 - 10) Pain Behaviors Wincing back Intensity 7 Scale Used Numeric (0 - 10) Description Aching,Cramping,With Movement Pain Behaviors Guarding,Wincing Pain Management Techniques Apply Cold,Re-positioning, Timing of Activity with Medications M4 PT-IP Mobility and Gait Start: 04/18/22 14:51 Freq: NEEDED Status: Active Protocol: Document 04/19/22 11:26 DLM (Rec: 04/19/22 12:25 DLM [id number]) PT-Bed Mobility Assessment Rolling Type of Rolling Log Rolling Level of Assist Standby Assistance Supine to Sit Supine to Sit Minimal Assistance Scooting Scooting to Edge of Bed Standby Assistance PT-Transfer Assessment Sit to and From Stand Sit to and from Stand Standby Assistance,Contact Guard Assistance,Use of Upper Extremities Equipment Transfer Assistive Device Gait Belt,Front Wheeled Walker Transfers Transfer Destination Bed,Chair,Toilet Transfer Technique Stand Step Pivot Transfer Ability Level of Assist Standby Assistance,Contact Guard Assistance,Use of Upper Extremities Comments Mobility Comments She reports increased pain with transitional movements including supine-sit and sit to stand. She demonstrates safe use of the FWW for gait. Pt is intermittent tearful when discussing her home situation. Gait Assessment Gait Gait Assistance Required: Standby Assistance,Contact Guard Assist Distance (Feet) 15 Assistive Devices Assistive Device Gait Belt,Front Wheeled Walker Gait Deviations General Gait Pattern Decreased Stride Length Factors Limiting Gait Function Factors Limiting Gait Function Decreased Activity Tolerance, Decreased Strength,Limited Range of Motion,Pain,Poor Balance Comments Gait Comments Pt up to recliner after tolerating ambulating short distance in the room. She prefers to sit with feet elevated in recliner at this time. Ice placed in incisional area. Stair Climbing Assessment Comments Stair Climbing Comments she was not ready to do stair training this visit PT-Balance Assessment Sitting Balance and Reactions Static Sitting Balance Ability Good Dynamic Sitting Balance Ability Good Standing Balance and Reactions Static Standing Balance Ability Good Dynamic Standing Balance Ability Good Device Used FWW M5 PT-IP Objective Assessments Start: 04/18/22 14:51 Freq: NEEDED Status: Active Protocol: Document 04/19/22 11:26 DLM (Rec: 04/19/22 12:25 DLM [id number]) Orientation Orientation/Cognition Level of Alertness Alert Orientation Name,Age,Birthday,Month,Date, Year,Day of Week,Place, Situation Language Function Ability No Deficits Noted Safety Awareness Understands Safety Issues Memory Description No Deficits Noted Gross Range of Motion Upper Extremity ROM Assessment Within Functional Limits Lower Extremity ROM Assessment Within Functional Limits Strength Upper Extremity Strength Assessment Within Functional Limits Lower Extremity Strength Assessment Bilaterally Impaired Knee able to bear weight for standing and gait Ankle DF 5/5 Comments Strength Comments LE strength limited by back pain She has a hx of cervical pain that has limited her functional UE use at home but no difficulties identified during this visit. Coordination Assessment Gross Coordination Gross Coordination WNL Sensation Assessment Sensation Gross Sensation WNL Comments Sensation Comments she reports hx of numbness in left hand due to cervical issues but none at this time, She reports no numbness/ tingling in LE's this visit Muscle Tone Muscle Tone WNL Yes M6 PT-IP Treatment Start: 04/18/22 14:51 Freq: NEEDED Status: Active Protocol: Document 04/19/22 11:26 DLM (Rec: 04/19/22 12:25 DLM [id number]) Physical Therapy Treatment Exercises Exercises Ankle Pumps Education Education Provided Precautions,Post-Op Packet, Safety Other Treatments Other Treatment Performed education for spine precautions M7 PT-IP Assessment and Plan Start: 04/18/22 14:51 Freq: NEEDED Status: Active Protocol: Document 04/19/22 11:26 DLM (Rec: 04/19/22 12:25 DLM [id number]) PT Summary Assessment and Plan Potential Rehabilitation Potential Good Status of Condition at Evaluation Evolving Summary Impairments Pain,ROM,Strength,Balance,Bed Mobility,Transfers,Gait, Activity Tolerance Assessment Summary Sofía is alert and resting in bed this visit. She does not feel she can discharge home from the hospital due to lack of help at home and inability to care for her dogs . She has many stairs at home both to get into the house and to go up to her bedroom on the second floor. She has significant back pain with functional mobility and gait this visit with use of the FWW and one person assistance. She was educated to use spine precautions post-op. She was able to ambulate to the toilet and get up to the recliner this visit. She is not safe to discharge home today due to her limited activitiy tolerance. She could benefit from SNF rehab to assist with her functional recovery after her spine surgery. Goals Bed Mobility Goal Independent Transfer Goal Independent,Front Wheeled Walker,Four Wheeled Walker Gait Goal Independent,Front Wheel Walker ,Four Wheel Walker Gait Distance 100 feet Other Goals Up/down 5 steps with rail and SBA. Up/down 17 steps with wall support and SBA. She will demonstrate use of her spine precautions during functional mobility. Days to Meet Goals 7 Frequency of Treatment Frequency Of Treatment Twice a Day Treatment Plan Physical Therapy Treatment Plan Bed Mobility Training,Transfer Training,Gait Training, Therapeutic Exercise,Balance Retraining,Post Op Education, Discharge Planning,Hot or Cold Pack,Neuromuscular Re-ed Precautions Lumbar Precautions Log Roll,No Twisting,Limit Bending,Lifting Restriction of 10 lbs,Gait Belt above Incisional Area Recommendations To Nursing Amount of Assist Needed 1 Person Assist Discharge Recommendations PT Discharge Recommendations SNF Rehab Transportation Needs at Discharge Private Vehicle,Wheelchair/ Cabulance
--- NOTE | 2022-04-19 11:30 | OT.IP.EVAL ---
Current Diagnoses Other spondylosis with radiculopathy, lumbar region (04/18/22) Spinal stenosis, lumbar region with neurogenic claudication (04/18/22) Surgery Performed Operation Date: 04/18/22 07:45 Actual Procedures p L4-5, L5-S1 TLIF w. posterior instrumentation -Robot - Julianne Rueda MD Past Medical History (Last Reviewed 04/19/22 @ 07:46 by Loren Hou PA-C) Cervical disc disorder at C6-C7 level with radiculopathy Depression Facet arthropathy, lumbar Heart murmur HLD (hyperlipidemia) HTN (hypertension) Kidney stones Lumbar radiculopathy Neck pain ELENI on CPAP Pre-diabetes Rash (04/14/22) Seasonal allergies Spinal stenosis SVT (supraventricular tachycardia) (~2002) Surgical History (Last Reviewed 04/19/22 @ 07:46 by Loren Hou PA-C) History of appendectomy History of bunionectomy of right great toe History of History of hysterectomy History of urologic surgery Hx of colonoscopy Hx of lithotripsy Hx of right cataract extraction Status post right foot surgery [place] teeth removed Occupational Therapy Inpatient Evaluation/Re-Eval M1 PT/OT-IP Prior Functional Status Start: 04/18/22 14:51 Freq: NEEDED Status: Active Protocol: Document 04/19/22 11:26 DLM (Rec: 04/19/22 12:25 DLM [id number]) Medical Review Prior Functional Status Medical History Reviewed Yes Diet/Fluid Consistency Regular Communication WFL, wears glasses for distance vision Mobility and Gait Independent without device, able to do stairs, increased back pain with bending over and extended standing Activities of Daily Living and IADL's Independent, she is a retired nurse Prior Functional Level (Other details) She has 3 dogs she cares for. Her adult children live with her but work multimedia project manager. Her grandchildren are in school. She reports having no help during the day at home. Social History Household Members family Living Arrangements House Number of Floors (Floors) Two Floors Number of Stairs To Enter/Railing? 5 steps with bilateral rails, can only reach one at a time Home Environment Standard Height Toilet,Walk in Shower Home Equipment Four Wheel Walker,Straight Cane Additional Social History Comment She has 6 steps at the back door where she lets out the dogs without rails, has wall support. She describes 17 steps to second floor of house with landing in the middle. She has full bathroom on first floor and second floor. Her bedroom is on the second floor of the house. She gets out on the left side of the bed at home. M2 OT-IP Current Condition Start: 04/19/22 13:18 Freq: Status: Active Protocol: Document 04/19/22 10:40 [facility] (Rec: 04/19/22 13:37 [facility] [id number]) Occupational Therapy Current Condition Current Condition Evaluation Date 04/19/22 Treatment Diagnosis S/p L4-5, L5-S1 TLIF Diagnosis Onset Date 04/18/22 Post Operative Precautions Lumbar Precautions Log Roll,No Twisting,Limit Bending,Lifting Restriction of 10 lbs,Gait Belt above Incisional Area M3 OT- IP Subjective and Pain Start: 04/19/22 13:18 Freq: Status: Active Protocol: Document 04/19/22 10:40 [facility] (Rec: 04/19/22 13:37 [facility] [id number]) OT- Subjective Occupational Therapy Visit Type Type Initial Evaluation Visit Start Time 10:40 Visit Stop Time 11:30 Total Visit Minutes 50 Occupational Therapy Visit Comments Patient Comments Pt agreed to get up. Patient/Caregiver Goals To go to skilled rehab OT Pain Assessment Pain When Pain Assessed During Mobility Pain Present Pain Present Pain Reported Location neck Intensity 7 M4 OT- IP ADL's Start: 04/19/22 13:18 Freq: Status: Active Protocol: Document 04/19/22 10:40 [facility] (Rec: 04/19/22 13:37 [facility] [id number]) OT LXK-[place] General Evaluation Self-Feeding Ability Independent OT ADL-Grooming Comments OT Grooming Comments Pt not wanting to do at this time. OT ADL-Oral Care Comments Oral Care Comments Pt not wanting to do at this time. OT ADL-Dressing General Eval Lower Body Dressing Ability Maximum Assistance Areas Needing Assistance Socks Comments OT Dressing Comments Able to go over LB dressing equipment with pt for needs. OT ADL-Toileting General Evaluation Toileting Ability Moderate Assistance Areas Needing Assistance Perform Perineal Hygiene Comments OT Toileting Comments Pt not able to reach to be able to her hygiene needs and educated pt on getting toilet paper aid, use of wet-wipes or have assist. OT ADL-Bathing Comments OT Bathing Comments Not performed. M5 OT- IP IADL's Start: 04/19/22 13:18 Freq: Status: Active Protocol: Document 04/19/22 10:40 [facility] (Rec: 04/19/22 13:37 [facility] [id number]) OT-Instrumental Activities of Daily Living Deficits IADL Deficits Identified Deficits Home Safety Awareness Awareness of Need for Assistance at Home Good Awareness Ability to Problem Solve Emergency Able to Problem Solve Situations Medication Management Medication Management Comments No issues anticipated Money Management Money Management Comments No issues anticipated Meal Preparation Meal Preparation Comments Pt will need assist. Operations Architect Operations Architect Comments Pt will need assist. M6 OT- IP Functional Cognition Start: 04/19/22 13:18 Freq: Status: Active Protocol: Document 04/19/22 10:40 [facility] (Rec: 04/19/22 13:37 [facility] [id number]) Cognitive Factors Limiting Selfcare Function Cognitive Ability Level of Alertness Alert Patient Orientation Name,Age,Birthday,Month,Date, Year,Day of Week,Place, Situation Attention Span Ability Capable of Focused Attention, Capable of Sustained Attention Ability to Follow Commands Able to Follow One Step Commands Cognitive Comments Cognitive Assessment Comments Pt able to follow commands for back precautions for ADl and mobility needs. Pt is a bit tearful as her several years ago and that he is not there to assist her. Pt also states her family works, kids at school, and worried about taking care of 3 dogs at home. OT- Vision and Hearing OT- Hearing Assessment OT- Hearing Assessment WFL OT- Vision Assessment Visual Acuity Glasses All The Time Vision Assessment Comments glasses while watchign TV M7 OT- IP Mobility and Balance Start: 04/19/22 13:18 Freq: Status: Active Protocol: Document 04/19/22 10:40 [facility] (Rec: 04/19/22 13:37 [facility] [id number]) OT- Bed Mobility Assessment Supine to Sit Supine to Sit Assist Minimal Assistance OT-Transfer Assessment Sit to and From Stand Sit to and from Stand Standby Assistance,Contact Guard Assistance Transfers Transfer Ability Standby Assistance,Contact Guard Assistance Technique Transfer Destination Bed,Chair,Toilet Transfer Technique Stand Step Pivot Devices Transfer Assistive Devices Gait Belt,Front Wheeled Walker Comments Mobility Comments IRAM for bed mobility to get out of bed with use of bed rail. Pt will probably needs more asisst as has no rail at home. CGA to stand and close SBA /CGA with FWW to walk into the bathroom and back out to the recliner. OT- Balance Assessment Sitting Balance and Reactions Static Sitting Balance Ability Normal Dynamic Sitting Balance Ability Good Standing Balance and Reactions Static Standing Balance Ability Good Dynamic Standing Balance Ability Fair M8 OT- IP Objective Assessments Start: 04/19/22 13:18 Freq: Status: Active Protocol: Document 04/19/22 10:40 [facility] (Rec: 04/19/22 13:37 [facility] [id number]) OT-Muscle Tone Assessment Muscle Tone WNL Yes M9 OT- IP Assessment and Plan Start: 04/19/22 13:18 Freq: Status: Active Protocol: Document 04/19/22 10:40 [facility] (Rec: 04/19/22 13:37 [facility] [id number]) OT Summary Assessment and Plan Potential Rehabilitation Potential Good Analytic Complexity at Evaluation Low Summary OT Impairments Pain,Balance,Functional Mobility,Dressing,Toileting, Bathing,Toilet Transfers, Shower Transfers,Activity Tolerance Progress Towards Goals Progressing Toward Goals Assessment Summary Pt low complexity and main barrier are pain and that she is alone during the day with 3 dogs and would benefit from skilled rehab. Pt would also benefit from getting LB dressing equipment,toilet paper aid, shower chair versus tub bench, and hand held shower spray for home use. Pt would benefit from short skilled stay to work on increasing her activity tolerance, and independence with ADl needs with use of adaptive equipment. Goals Grooming Goal Independent Dressing Goal Independent Toileting Goal Independent Bathing Goal Standby Assistance Toilet Transfer Goal Independent Shower Transfer Goal Standby Assistance Days to Meet Goals 7 Frequency of Treatment Frequency Of Treatment Once a Day Treatment Plan OT Treatment Plan ADL Training,Functional Mobility,Patient/Family Education,Discharge Planning Discharge Recommendations OT Discharge Recommendations SNF Rehab Transportation Needs at Discharge Wheelchair/Cabulance
--- NOTE | 2022-04-19 14:10 | CM.DANOTE ---
Initial DCP Assessment Note Pt is a 71 yo female, resident of [place], now POD#[address] Rueda PCP: Morenita Zimmer Payer: [facility] Familiar with patient from brief discussion pre-operatively by phone; advised patient to have SNF choices ready post operatively and explained that w/[facility], authorization for SNF is not guaranteed, patient had stated understanding but did say multiple times she was planning on SNF upon discharge Met w/patient to introduce self and role; patient placed call to [facility] Customer Service line and was told [facility] will pay for SNF stay. Patient requests referrals be sent to the following facilities: 1. [facility] 2. [facility] 3. [facility] Explained to patient that [facility] may approve or deny SNF auth request depending on documented needs and recommendations from therapy team, patient stated understanding. TIFFANIE Jean, has kindly agreed to fax referrals to facilities listed above. See now that there are PT and OT notes, which will be sent to [facility] to review for SNF auth request YVES Lewis Discharge Planning/Care Management CM Discharge Assessment Start: 04/19/22 14:06 Freq: Status: Active Protocol: Document 04/19/22 14:06 [facility] (Rec: 04/19/22 14:09 [facility] [id number]) Discharge Planning Assessment Assigned Park Interpretive Specialist YVES Villatoro DPOA/Assigned Designee Name robyn Gutiérrez Contact Information [phone] Advance Directives? No Advance Directives on File No History Provided By Patient,Medical Record Prior Living Arrangements House Household Members family Type of transporation used prior to Drives own vehicle admit Independent with ADL's Yes: Poor activity tolerance Is patient alert and oriented? Yes Needs Assistance With Home Chores / Shopping Patient/Family Preference Halfway Facility Barriers to Discharge Yes Comment Patient says she has 3 dogs, lives w/her children however they work fulltime, has grandchildren that attend school Discharge Plan Halfway Facility Transportation Arrangement Likely cabulance if SNF Medicare Choice List Provided No SNF/HH Preference 1. [facility] 2. [facility] 3. [facility] Has Agency SNF been contacted Yes
--- NOTE | 2022-04-19 15:06 | PT.IPTN ---
Current Diagnoses Other spondylosis with radiculopathy, lumbar region (04/18/22) Spinal stenosis, lumbar region with neurogenic claudication (04/18/22) Surgery Performed Operation Date: 04/18/22 07:45 Actual Procedures p L4-5, L5-S1 TLIF w. posterior instrumentation -Robot - Julianne Rueda MD Physical Therapy Treatment Note M2 PT-IP Current Condition Start: 04/18/22 14:51 Freq: NEEDED Status: Active Protocol: Document 04/19/22 11:26 DLM (Rec: 04/19/22 12:25 DLM [id number]) Physical Therapy Current Condition Current Condition Evaluation Date 04/19/22 Treatment Diagnosis L4-S1 TLIF, impaired gait and back pain Onset Date 04/18/22 M3 PT-IP Subjective Start: 04/18/22 14:51 Freq: NEEDED Status: Active Protocol: Document 04/19/22 14:38 LJ (Rec: 04/19/22 15:06 LJ [id number]) Subjective Physical Therapy Visit Type Type Treatment Note Visit Start Time 13:46 Visit Stop Time 14:09 Total Visit Minutes 23 Number of CAREER PLACEMENT SERVICES COUNSELOR Visits 1 Physical Therapy Visit Comments Patient Comments She does not feel safe to go home at discharge since she will have no one to help during the day and she will not be able to take care of the dogs. Patient Goals She wants to go to SNF rehab to get stronger before returning home Therapy Pain Assessment Pain When Pain Assessed During Mobility Pain Present Pain Present Pain Reported Location back Pain Behaviors Calling Out,Crying,Facial Grimacing,Wincing Pain Management Techniques Apply Cold,Re-positioning, Timing of Activity with Medications M4 PT-IP Mobility and Gait Start: 04/18/22 14:51 Freq: NEEDED Status: Active Protocol: Document 04/19/22 14:38 LJ (Rec: 04/19/22 15:06 LJ [id number]) PT-Bed Mobility Assessment Rolling Type of Rolling Log Rolling Level of Assist Standby Assistance Sit to Supine Sit to Supine Standby Assistance Scooting Scooting Up and Down in Bed Standby Assistance PT-Transfer Assessment Sit to and From Stand Sit to and from Stand Standby Assistance,Use of Upper Extremities Equipment Transfer Assistive Device Gait Belt,Front Wheeled Walker Transfers Transfer Destination Bed,Wheelchair Transfer Technique ambulated Transfer Ability Level of Assist Standby Assistance,Use of Upper Extremities Comments Mobility Comments Pt moving well. Able to get into flat bed no rails SBA. Used rails to position self in middle of bed. Increased pain with transitional movements. Cues to move with less jostling when transitioning sit>supine and positioning self in bed. Gait Assessment Gait Gait Assistance Required: Standby Assistance Distance (Feet) 120 Assistive Devices Assistive Device Gait Belt,Front Wheeled Walker Gait Deviations General Gait Pattern Decreased Stride Length Factors Limiting Gait Function Factors Limiting Gait Function Decreased Activity Tolerance, Decreased Strength,Limited Range of Motion,Pain,Poor Balance Comments Gait Comments After completing stair training x2 pt ambulated back to room SBA. Decreased foot clearance which may be baseline. Good FWW management. Stair Climbing Assessment Evaluation Level of Assist On Stairs Contact Guard Assistance Devices Stair Climbing Assistive Devices Left Railing,Right Railing Technique/Endurance Stair Climbing Direction Ascend and Descend Stair Climbing Technique Step to Step Number of Steps Climbed 3 Stair Climbing Set # Repetitions (reps) 2 Comments Stair Climbing Comments Heavy use of railings on first trial. Second trial pt only used one rail which is what is closest to situation at home and went up/down sideways using right rail. Moves slowly and verbalizes pain by crying out on occasion. PT-Balance Assessment Sitting Balance and Reactions Static Sitting Balance Ability Good Dynamic Sitting Balance Ability Good Standing Balance and Reactions Static Standing Balance Ability Good Dynamic Standing Balance Ability Good Device Used FWW M5 PT-IP Objective Assessments Start: 04/18/22 14:51 Freq: NEEDED Status: Active Protocol: Document 04/19/22 11:26 DLM (Rec: 04/19/22 12:25 DLM [id number]) Orientation Orientation/Cognition Level of Alertness Alert Orientation Name,Age,Birthday,Month,Date, Year,Day of Week,Place, Situation Language Function Ability No Deficits Noted Safety Awareness Understands Safety Issues Memory Description No Deficits Noted Gross Range of Motion Upper Extremity ROM Assessment Within Functional Limits Lower Extremity ROM Assessment Within Functional Limits Strength Upper Extremity Strength Assessment Within Functional Limits Lower Extremity Strength Assessment Bilaterally Impaired Knee able to bear weight for standing and gait Ankle DF 5/5 Comments Strength Comments LE strength limited by back pain She has a hx of cervical pain that has limited her functional UE use at home but no difficulties identified during this visit. Coordination Assessment Gross Coordination Gross Coordination WNL Sensation Assessment Sensation Gross Sensation WNL Comments Sensation Comments she reports hx of numbness in left hand due to cervical issues but none at this time, She reports no numbness/ tingling in LE's this visit Muscle Tone Muscle Tone WNL Yes M6 PT-IP Treatment Start: 04/18/22 14:51 Freq: NEEDED Status: Active Protocol: Document 04/19/22 14:38 LJ (Rec: 04/19/22 15:06 LJ [id number]) Physical Therapy Treatment Education Education Provided Precautions,Safety M7 PT-IP Assessment and Plan Start: 04/18/22 14:51 Freq: NEEDED Status: Active Protocol: Document 04/19/22 14:38 LJ (Rec: 04/19/22 15:06 LJ [id number]) PT Summary Assessment and Plan Potential Rehabilitation Potential Good Status of Condition at Evaluation Evolving Summary Impairments Pain,ROM,Strength,Balance,Bed Mobility,Transfers,Gait, Activity Tolerance Progress Towards Goals Progressing Toward Goals Assessment Summary Pt increased ambulation distance and trialed stairs x2 . Pt did not attempt stairs without using rails which is the situation she has at home getting up to her bedroom. Her mobility is good demonstrated by her ability to get into and out of a flat bed without assist. Stair training is not safe at this point. She can navigate 3 steps at a time right now but will need to ascend and descend many more at home. Will continue to assess. Goals Bed Mobility Goal Independent Transfer Goal Independent,Front Wheeled Walker,Four Wheeled Walker Gait Goal Independent,Front Wheel Walker ,Four Wheel Walker Gait Distance 100 feet Other Goals Up/down 5 steps with rail and SBA. Up/down 17 steps with wall support and SBA. She will demonstrate use of her spine precautions during functional mobility. Days to Meet Goals 7 Frequency of Treatment Frequency Of Treatment Twice a Day Treatment Plan Physical Therapy Treatment Plan Bed Mobility Training,Transfer Training,Gait Training, Therapeutic Exercise,Balance Retraining,Post Op Education, Discharge Planning,Hot or Cold Pack,Neuromuscular Re-ed Other Recommendations and Next Treatment trial stairs with cane and Focus wall rather than using rails to simulate home situation. Precautions Lumbar Precautions Log Roll,No Twisting,Limit Bending,Lifting Restriction of 10 lbs,Gait Belt above Incisional Area Recommendations To Nursing Amount of Assist Needed 1 Person Assist Discharge Recommendations PT Discharge Recommendations Home with Assistance,Home Health,SNF Rehab Transportation Needs at Discharge Private Vehicle,Wheelchair/ Cabulance
[2022-04-19] MEDS: SENNOSIDES 8.6 MG TABLET 17.2 MG PO (20:28)
[2022-04-19] MEDS: CITALOPRAM 10 MG TABLET 40 MG PO (20:28)
[2022-04-19] MEDS: hydroCHLOROthiazide 25 MG TABLET PO (20:29)
[2022-04-19] MEDS: FISH OIL 1,000 MG CAPSULE 1000 MG PO (20:29)
[2022-04-19] MEDS: ATORVASTATIN 20 MG TABLET 10 MG PO (20:29)
[2022-04-19] MEDS: hydrOXYzine pamoate 25 MG CAPSULE PO (22:11)
[2022-04-20] MEDS: OXYCODONE IR 5 MG TABLET 10 MG PO ×5 (03:48→20:19)
[2022-04-20 08:11] VITALS: BP 149/64; PULSE 89; RESP 17; TEMP 36.6; O2SAT 92
--- NOTE | 2022-04-20 08:12 | PM.PNPO.1 ---
Subjective Subjective Date Patient Seen: 04/20/22 Time Patient Seen: 08:12 Interval history: Pain is been moderate to severe. Denies fever chills. No nausea vomiting. Patient does note that pain is very mild when she is not active and moderate to severe with activity. Exam Vital Signs (past 8 hours): - 04/20/22 08:11 Temperature 97.9 F Pulse Rate 89 Respiratory Rate 17 Blood Pressure 149/64 H Pulse Oximetry 92 Oxygen Flow Rate 0 Oxygen Delivery Method Nasal Cannula Oxygen Flow Rate 0 Narrative Exam Narrative: 71-year-old female resting comfortably in bed in no apparent distress. Motor functions intact bilateral lower extremities. Sensation grossly intact to light touch bilateral lower extremities. Const General: cooperative and comfortable Nutritional Appearance: well nourished Orientation: alert Resp Effort & Inspection: normal respiratory effort and able to speak in complete sentences Objective Labs 04/19/22 04:46 PFSH Medical History Cervical disc disorder at C6-C7 level with radiculopathy Depression Facet arthropathy, lumbar Heart murmur HLD (hyperlipidemia) HTN (hypertension) Kidney stones Lumbar radiculopathy Neck pain ELENI on CPAP Pre-diabetes Rash (04/14/22) Seasonal allergies Spinal stenosis SVT (supraventricular tachycardia) (~2002) Surgical History History of appendectomy History of bunionectomy of right great toe History of History of hysterectomy History of urologic surgery Hx of colonoscopy Hx of lithotripsy Hx of right cataract extraction Status post right foot surgery [place] teeth removed Social History marital status: household members: family Smoking Status: Never smoker alcohol intake: never Assessment & Plan Post-op Postoperative Procedures: Procedures Operation Date: 04/18/22 07:45 Actual Procedure Side Surgeon p L4-5, L5-S1 TLIF w. posterior instrumentation -Robot Julianne Rueda MD Postoperative day: 2 Postoperative status: doing well and marginal pain control Postoperative status narrative: Postop day 2 status post L4-L5, L5-S1 lumbar fusion. Patient progressing as expected. Postoperative plan: routine post-op care Postoperative plan narrative: Physical therapy, limit bending, twisting, lifting Multimodal pain management Discharge to rehab facility when appropriate as patient has multiple stairs at home, 3 dogs, and no assistance during the day. Quality VTE Deep Vein Thrombosis/Pulmonary Embolism Present on Admission: No
[2022-04-20] MEDS: BENZOCAINE/MENTHOL 1 LOZ PKT 1 EACH PO (08:35)
[2022-04-20] MEDS: DOCUSATE 100 MG CAPSULE PO ×2 (08:35→20:19)
--- NOTE | 2022-04-20 10:05 | PT.IPTN ---
Current Diagnoses Other spondylosis with radiculopathy, lumbar region (04/18/22) Spinal stenosis, lumbar region with neurogenic claudication (04/18/22) Surgery Performed Operation Date: 04/18/22 07:45 Actual Procedures p L4-5, L5-S1 TLIF w. posterior instrumentation -Robot - Julianne Rueda MD Physical Therapy Treatment Note M2 PT-IP Current Condition Start: 04/18/22 14:51 Freq: NEEDED Status: Active Protocol: Document 04/19/22 11:26 DLM (Rec: 04/19/22 12:25 DLM [id number]) Physical Therapy Current Condition Current Condition Evaluation Date 04/19/22 Treatment Diagnosis L4-S1 TLIF, impaired gait and back pain Onset Date 04/18/22 M3 PT-IP Subjective Start: 04/18/22 14:51 Freq: NEEDED Status: Active Protocol: Document 04/20/22 09:48 EMA (Rec: 04/20/22 10:05 LJ [id number]) Subjective Physical Therapy Visit Type Type Treatment Note Visit Start Time 09:21 Visit Stop Time 09:48 Total Visit Minutes 27 Number of PRECISION INSTRUMENT AND TOOL MAKER Visits 2 Physical Therapy Visit Comments Patient Comments Pt in elevated bed. Willing to work with PT. States she has to go to the bathroom. Patient Goals She wants to go to SNF rehab to get stronger before returning home Therapy Pain Assessment Pain When Pain Assessed During Mobility Pain Present Pain Present Pain Reported Location back Intensity 4 Pain Behaviors Facial Grimacing Pain Management Techniques Apply Cold,Re-positioning, Timing of Activity with Medications M4 PT-IP Mobility and Gait Start: 04/18/22 14:51 Freq: NEEDED Status: Active Protocol: Document 04/20/22 09:48 EMA (Rec: 04/20/22 10:05 LJ [id number]) PT-Bed Mobility Assessment Rolling Type of Rolling Roll to Right Level of Assist Standby Assistance Supine to Sit Supine to Sit Minimal Assistance,Bedrails Scooting Scooting to Edge of Bed Independent PT-Transfer Assessment Sit to and From Stand Sit to and from Stand Standby Assistance,Use of Upper Extremities Equipment Transfer Assistive Device Gait Belt,Front Wheeled Walker Transfers Transfer Destination Chair,Toilet Transfer Technique ambulated Transfer Ability Level of Assist Standby Assistance,Use of Upper Extremities Comments Mobility Comments Pt in bed with HOB elevated. Therapist lowered bed to flat position. Pt logroll to right cues to reach with LUE to pull on edge of bed. Attempted x2 to lift trunk SL to sitting but unable. Therpist pulled up on bedrail at head of bed and pt used it to right trunk with Cassie from therapist. Ambulated to toilet and used grab bars stand>sit. Vaided and performed indep pericare. Pt stood from toilet SBA using grab bar. Ambulated to chair and sat down with good control using arm rests. Gait Assessment Gait Gait Assistance Required: Standby Assistance Distance (Feet) 40 Assistive Devices Assistive Device Gait Belt,Front Wheeled Walker Gait Deviations General Gait Pattern Decreased Stride Length Factors Limiting Gait Function Factors Limiting Gait Function Decreased Activity Tolerance, Decreased Strength,Limited Range of Motion,Pain,Poor Balance Comments Gait Comments Pt ambulated around room after using toilet. SBA. Walking very slowly but with good use of FWW. PT-Balance Assessment Sitting Balance and Reactions Static Sitting Balance Ability Good Dynamic Sitting Balance Ability Good Standing Balance and Reactions Static Standing Balance Ability Good Dynamic Standing Balance Ability Good Device Used FWW M5 PT-IP Objective Assessments Start: 04/18/22 14:51 Freq: NEEDED Status: Active Protocol: Document 04/19/22 11:26 DLM (Rec: 04/19/22 12:25 DLM [id number]) Orientation Orientation/Cognition Level of Alertness Alert Orientation Name,Age,Birthday,Month,Date, Year,Day of Week,Place, Situation Language Function Ability No Deficits Noted Safety Awareness Understands Safety Issues Memory Description No Deficits Noted Gross Range of Motion Upper Extremity ROM Assessment Within Functional Limits Lower Extremity ROM Assessment Within Functional Limits Strength Upper Extremity Strength Assessment Within Functional Limits Lower Extremity Strength Assessment Bilaterally Impaired Knee able to bear weight for standing and gait Ankle DF 5/5 Comments Strength Comments LE strength limited by back pain She has a hx of cervical pain that has limited her functional UE use at home but no difficulties identified during this visit. Coordination Assessment Gross Coordination Gross Coordination WNL Sensation Assessment Sensation Gross Sensation WNL Comments Sensation Comments she reports hx of numbness in left hand due to cervical issues but none at this time, She reports no numbness/ tingling in LE's this visit Muscle Tone Muscle Tone WNL Yes M6 PT-IP Treatment Start: 04/18/22 14:51 Freq: NEEDED Status: Active Protocol: Document 04/20/22 09:48 LJ (Rec: 04/20/22 10:05 EMA [id number]) Physical Therapy Treatment Education Education Provided Precautions,Safety M7 PT-IP Assessment and Plan Start: 04/18/22 14:51 Freq: NEEDED Status: Active Protocol: Document 04/20/22 09:48 EMA (Rec: 04/20/22 10:05 EMA [id number]) PT Summary Assessment and Plan Potential Rehabilitation Potential Good Status of Condition at Evaluation Evolving Summary Impairments Pain,ROM,Strength,Balance,Bed Mobility,Transfers,Gait, Activity Tolerance Progress Towards Goals Progressing Toward Goals Assessment Summary Pt moving very slowly but appropriately. Bed mobility required Cassie to right trunk. Transfers and ambulation SBA. Goals Bed Mobility Goal Independent Transfer Goal Independent,Front Wheeled Walker,Four Wheeled Walker Gait Goal Independent,Front Wheel Walker ,Four Wheel Walker Gait Distance 100 feet Other Goals Up/down 5 steps with rail and SBA. Up/down 17 steps with wall support and SBA. She will demonstrate use of her spine precautions during functional mobility. Days to Meet Goals 7 Frequency of Treatment Frequency Of Treatment Twice a Day Treatment Plan Physical Therapy Treatment Plan Bed Mobility Training,Transfer Training,Gait Training, Therapeutic Exercise,Balance Retraining,Post Op Education, Discharge Planning,Hot or Cold Pack,Neuromuscular Re-ed Other Recommendations and Next Treatment trial stairs with cane and Focus wall rather than using rails to simulate home situation. Precautions Lumbar Precautions Log Roll,No Twisting,Limit Bending,Lifting Restriction of 10 lbs,Gait Belt above Incisional Area Recommendations To Nursing Amount of Assist Needed 1 Person Assist Discharge Recommendations PT Discharge Recommendations Home with Assistance,Home Health,SNF Rehab Transportation Needs at Discharge Private Vehicle,Wheelchair/ Cabulance
--- NOTE | 2022-04-20 11:37 | OT.IP.TRT ---
Current Diagnoses Other spondylosis with radiculopathy, lumbar region (04/18/22) Spinal stenosis, lumbar region with neurogenic claudication (04/18/22) Surgery Performed Operation Date: 04/18/22 07:45 Actual Procedures p L4-5, L5-S1 TLIF w. posterior instrumentation -Robot - Julianne Rueda MD Occupational Therapy Treatment Note M2 OT-IP Current Condition Start: 04/19/22 13:18 Freq: Status: Active Protocol: Document 04/19/22 10:40 [facility] (Rec: 04/19/22 13:37 [facility] [id number]) Occupational Therapy Current Condition Current Condition Evaluation Date 04/19/22 Treatment Diagnosis S/p L4-5, L5-S1 TLIF Diagnosis Onset Date 04/18/22 Post Operative Precautions Lumbar Precautions Log Roll,No Twisting,Limit Bending,Lifting Restriction of 10 lbs,Gait Belt above Incisional Area M3 OT- IP Subjective and Pain Start: 04/19/22 13:18 Freq: Status: Active Protocol: Document 04/20/22 11:37 [facility] (Rec: 04/20/22 14:00 [facility] [id number]) OT- Subjective Occupational Therapy Visit Type Type Treatment Note Visit Start Time 11:37 Visit Stop Time 12:11 Total Visit Minutes 34 Occupational Therapy Visit Comments Patient Comments Pt wanting to use the bathroom . Patient/Caregiver Goals To go to skilled rehab. OT Pain Assessment Pain When Pain Assessed At Rest Pain Present Pain Present Pain Reported Location neck Intensity 7 Scale Used Numeric (0 - 10) M4 OT- IP ADL's Start: 04/19/22 13:18 Freq: Status: Active Protocol: Document 04/20/22 11:37 [facility] (Rec: 04/20/22 14:00 [facility] [id number]) OT [id number]-[id number] General Evaluation Self-Feeding Ability Independent OT ADL-Grooming General Evaluation Grooming Ability Independent OT ADL-Oral Care General Eval Oral Care Ability Independent OT ADL-Dressing General Eval Lower Body Dressing Ability Standby Assistance,Moderate Assistance Comments OT Dressing Comments Pt needing MODA for LB dressing needs if not using adaptive equipment and will benefit from use of foundation digger for her needs. Pt states to just wear slippers at home. OT ADL-Toileting General Evaluation Toileting Ability Standby Assistance,Moderate Assistance Comments OT Toileting Comments Pt able to wipe form the front after urinating and will need assist if having a bowel movement or obtain a toilet paper aid , use of wet ones, or assist. OT ADL-Bathing Comments OT Bathing Comments Not performed. M5 OT- IP IADL's Start: 04/19/22 13:18 Freq: Status: Active Protocol: Document 04/19/22 10:40 [facility] (Rec: 04/19/22 13:37 [facility] [id number]) OT-Instrumental Activities of Daily Living Deficits IADL Deficits Identified Deficits Home Safety Awareness Awareness of Need for Assistance at Home Good Awareness Ability to Problem Solve Emergency Able to Problem Solve Situations Medication Management Medication Management Comments No issues anticipated Money Management Money Management Comments No issues anticipated Meal Preparation Meal Preparation Comments Pt will need assist. It Investment/Portfolio Manager It Investment/Portfolio Manager Comments Pt will need assist. M6 OT- IP Functional Cognition Start: 04/19/22 13:18 Freq: Status: Active Protocol: Document 04/20/22 11:37 [facility] (Rec: 04/20/22 14:00 [facility] [id number]) Cognitive Factors Limiting Selfcare Function Cognitive Ability Level of Alertness Alert Patient Orientation Name,Age,Birthday,Month,Date, Year,Day of Week,Place, Situation Attention Span Ability Capable of Focused Attention, Capable of Sustained Attention Ability to Follow Commands Able to Follow One Step Commands Cognitive Comments Cognitive Assessment Comments Pt able to follow commands well for ADl and mobility needs. Pt a bit tearful that her family has not stepped up to offer to assist her more. M7 OT- IP Mobility and Balance Start: 04/19/22 13:18 Freq: Status: Active Protocol: Document 04/20/22 11:37 [facility] (Rec: 04/20/22 14:00 [facility] [id number]) OT- Bed Mobility Assessment Supine to Sit Supine to Sit Assist Standby Assistance Sit to Supine Sit to Supine Assist Standby Assistance OT-Transfer Assessment Sit to and From Stand Sit to and from Stand Standby Assistance Transfers Transfer Ability Standby Assistance Technique Transfer Destination Bed,Chair,Toilet Devices Transfer Assistive Devices Gait Belt,Front Wheeled Walker Comments Mobility Comments Able to try youth FWW and pt able to mobilize better with it as at a more appropriate height for the pt. Pt is SBA with all mobility needs with increased time. OT- Balance Assessment Sitting Balance and Reactions Static Sitting Balance Ability Normal Dynamic Sitting Balance Ability Good Standing Balance and Reactions Static Standing Balance Ability Good Dynamic Standing Balance Ability Fair M8 OT- IP Objective Assessments Start: 04/19/22 13:18 Freq: Status: Active Protocol: Document 04/19/22 10:40 [facility] (Rec: 04/19/22 13:37 [facility] [id number]) OT-Muscle Tone Assessment Muscle Tone WNL Yes M9 OT- IP Assessment and Plan Start: 04/19/22 13:18 Freq: Status: Active Protocol: Document 04/20/22 11:37 [facility] (Rec: 04/20/22 14:00 [facility] [id number]) OT Summary Assessment and Plan Potential Rehabilitation Potential Good Analytic Complexity at Evaluation Low Summary OT Impairments Pain,Balance,Functional Mobility,Dressing,Toileting, Bathing,Toilet Transfers, Shower Transfers,Activity Tolerance Progress Towards Goals Progressing Toward Goals Assessment Summary Pt doing well and still having difficulty with LB dressing and toileting needs and would need assist if not able to obtain LB dressing equipment or toilet paper aid. Pt would benefit from skilled rehab as per pt is essentially home alone with 3 dogs and her family is not available to assist. Ideally and would be best for pt if pt has some assist at home especially for ADL and IADL needs. Pt open to be issued a youth FWW if having to go home. Goals Grooming Goal Independent Dressing Goal Independent Toileting Goal Independent Bathing Goal Standby Assistance Toilet Transfer Goal Independent Shower Transfer Goal Standby Assistance Days to Meet Goals 6 Frequency of Treatment Frequency Of Treatment Once a Day Treatment Plan OT Treatment Plan ADL Training,Functional Mobility,Patient/Family Education,Discharge Planning Discharge Recommendations OT Discharge Recommendations Home Health,SNF Rehab,Home vs SNF Other Discharge Recommendations HOme if pt able to get some assist. Transportation Needs at Discharge Private Vehicle,Wheelchair/ Cabulance
[2022-04-20 12:00] VITALS: BP 132/69; PULSE 94; RESP 18; TEMP 37.2; O2SAT 95
--- NOTE | 2022-04-20 13:35 | PC.NURSE ---
Pt eating lunch at this time and speaking on the phone with loved one. Pt refused IS treatment
--- NOTE | 2022-04-20 15:31 | PC.NURSE ---
Pt c/o of dsg on back rolling up. Removed post op dressing and replaced with Coversite.
--- NOTE | 2022-04-20 15:39 | PT-IP ANOTE ---
Pt refused treatment in afternoon. Dispensed FWW to pt and pt's son shown how to adjust it. Will check back with pt prior to planned DC tomorrow.
[2022-04-20 16:47] VITALS: BP 138/78; PULSE 88; RESP 17; TEMP 36.6; O2SAT 93
[2022-04-20 20:10] VITALS: BP 150/81; PULSE 95; RESP 17; TEMP 37; O2SAT 93
[2022-04-20] MEDS: hydroCHLOROthiazide 25 MG TABLET PO (20:19)
[2022-04-20] MEDS: CITALOPRAM 10 MG TABLET 40 MG PO (20:19)
[2022-04-20] MEDS: SENNOSIDES 8.6 MG TABLET 17.2 MG PO (20:20)
[2022-04-20] MEDS: ATORVASTATIN 20 MG TABLET 10 MG PO (20:20)
[2022-04-20] MEDS: hydrOXYzine pamoate 25 MG CAPSULE PO (20:20)
[2022-04-20] MEDS: FISH OIL 1,000 MG CAPSULE 1000 MG PO (20:23)
[2022-04-20 23:35] VITALS: BP 123/57; PULSE 96; RESP 20; TEMP 36.6; O2SAT 94
[2022-04-21 05:25] VITALS: BP 142/72; PULSE 95; RESP 19; TEMP 36.1; O2SAT 94
[2022-04-21 08:29] VITALS: BP 148/91; PULSE 89; RESP 18; TEMP 36.6; O2SAT 92
[2022-04-21] MEDS: OXYCODONE IR 5 MG TABLET 10 MG PO ×2 (08:41→13:44)
[2022-04-21] MEDS: DOCUSATE 100 MG CAPSULE PO (08:42)
--- NOTE | 2022-04-21 11:07 | PT.IPTN ---
Current Diagnoses Other spondylosis with radiculopathy, lumbar region (04/18/22) Spinal stenosis, lumbar region with neurogenic claudication (04/18/22) Surgery Performed Operation Date: 04/18/22 07:45 Actual Procedures p L4-5, L5-S1 TLIF w. posterior instrumentation -Robot - Julianne Rueda MD Physical Therapy Treatment Note M2 PT-IP Current Condition Start: 04/18/22 14:51 Freq: NEEDED Status: Discharge Protocol: Document 04/21/22 10:14 SP (Rec: 04/21/22 18:19 SP [id number]) Physical Therapy Current Condition Current Condition Evaluation Date 04/19/22 Treatment Diagnosis L4-S1 TLIF, impaired gait and back pain Onset Date 04/18/22 M3 PT-IP Subjective Start: 04/18/22 14:51 Freq: NEEDED Status: Discharge Protocol: Document 04/21/22 10:14 SP (Rec: 04/21/22 18:19 SP [id number]) Subjective Physical Therapy Visit Type Type Treatment Note Visit Start Time 10:14 Visit Stop Time 11:07 Total Visit Minutes 53 Number of DIRECTOR OUTCOMES Visits 3 Physical Therapy Visit Comments Patient Comments Pt agreeable to working with therapy. Patient Goals She wants to go to SNF rehab to get stronger before returning home Therapy Pain Assessment Pain When Pain Assessed During Mobility Pain Present Pain Present Pain Reported Location back Intensity 6 Scale Used Numeric (0 - 10) Description With Movement Pain Behaviors Facial Grimacing Pain Management Techniques Distraction,Re-positioning, Timing of Activity with Medications M4 PT-IP Mobility and Gait Start: 04/18/22 14:51 Freq: NEEDED Status: Discharge Protocol: Document 04/21/22 10:14 SP (Rec: 04/21/22 18:19 SP [id number]) PT-Bed Mobility Assessment Rolling Type of Rolling Log Rolling,Roll to Left Level of Assist Standby Assistance Sit to Supine Sit to Supine Standby Assistance Scooting Scooting Up and Down in Bed Independent PT-Transfer Assessment Sit to and From Stand Sit to and from Stand Standby Assistance,Use of Upper Extremities Equipment Transfer Assistive Device Gait Belt,Front Wheeled Walker Transfers Transfer Destination Bed,Wheelchair Transfer Ability Level of Assist Standby Assistance,Use of Upper Extremities Comments Mobility Comments Pt was walking out of the bathroom using FWW distant SBA when arrived. Gait to sink w/ FWW 10 ft, washed hands at sink SBA occasional UE support noted on sink due to report back pain in standing. Gait w/ fWW to hallway w/c 15 ft good step back and UE reach back slow sit. Wheeled to stairs completed 6 stairs L HR CGA-5% A step to patterning asc/ descend. Pt able to walk back to room approx 200 ft stagger stepping w/FWW SBA w/c follow but not needed 1 brief stop stand rest, requires increased time to mobilize due to pain reported. Pt elected to return to bed stand>sit>R SL (min A LEs into bed)> scoot posterior to center self>supine SBA. Provided pillows under thighs for spinal alignment support. Pt had all needs in reach before left. Pt is ok return home with son / daughter to assist her. Gait Assessment Gait Gait Assistance Required: Standby Assistance Distance (Feet) 200 Assistive Devices Assistive Device Gait Belt,Front Wheeled Walker Gait Deviations General Gait Pattern Antalgic,Decreased Stride Length Factors Limiting Gait Function Factors Limiting Gait Function Decreased Activity Tolerance, Decreased Strength,Limited Range of Motion,Pain Comments Gait Comments see mobility comments Stair Climbing Assessment Evaluation Level of Assist On Stairs Standby Assistance,Contact Guard Assistance Devices Stair Climbing Assistive Devices Left Railing Technique/Endurance Stair Climbing Direction Ascend and Descend Stair Climbing Technique Step to Step Number of Steps Climbed 3 Stair Climbing Set # Repetitions (reps) 2 Comments Stair Climbing Comments Mod BUE on L HR, see mobility comments PT-Balance Assessment Sitting Balance and Reactions Static Sitting Balance Ability Normal Dynamic Sitting Balance Ability Good Standing Balance and Reactions Static Standing Balance Ability Good Dynamic Standing Balance Ability Good Device Used FWW M5 PT-IP Objective Assessments Start: 04/18/22 14:51 Freq: NEEDED Status: Discharge Protocol: Document 04/19/22 11:26 DL (Rec: 04/19/22 12:25 DL [id number]) Orientation Orientation/Cognition Level of Alertness Alert Orientation Name,Age,Birthday,Month,Date, Year,Day of Week,Place, Situation Language Function Ability No Deficits Noted Safety Awareness Understands Safety Issues Memory Description No Deficits Noted Gross Range of Motion Upper Extremity ROM Assessment Within Functional Limits Lower Extremity ROM Assessment Within Functional Limits Strength Upper Extremity Strength Assessment Within Functional Limits Lower Extremity Strength Assessment Bilaterally Impaired Knee able to bear weight for standing and gait Ankle DF 5/5 Comments Strength Comments LE strength limited by back pain She has a hx of cervical pain that has limited her functional UE use at home but no difficulties identified during this visit. Coordination Assessment Gross Coordination Gross Coordination WNL Sensation Assessment Sensation Gross Sensation WNL Comments Sensation Comments she reports hx of numbness in left hand due to cervical issues but none at this time, She reports no numbness/ tingling in LE's this visit Muscle Tone Muscle Tone WNL Yes M6 PT-IP Treatment Start: 04/18/22 14:51 Freq: NEEDED Status: Discharge Protocol: Document 04/21/22 10:14 SP (Rec: 04/21/22 18:19 SP [id number]) Physical Therapy Treatment Education Education Provided Precautions,Safety Other Treatments Other Treatment Performed Good recall and mobility maintaining spinal precautions M7 PT-IP Assessment and Plan Start: 04/18/22 14:51 Freq: NEEDED Status: Discharge Protocol: Document 04/21/22 10:14 SP (Rec: 04/21/22 18:19 SP [id number]) PT Summary Assessment and Plan Potential Rehabilitation Potential Good Status of Condition at Evaluation Evolving Summary Impairments Pain,ROM,Strength,Balance,Bed Mobility,Transfers,Gait, Activity Tolerance Progress Towards Goals Progressing Toward Goals,Slow Progress due to Pain,Slow Progress due to Activity Tolerance Assessment Summary Pt SBA- Distant sBA for all mobilitiy w/ FWW. Takes time to mobilize due to decreased strength and pain reported. Pt is ok return home with family to assist her when medically cleared. REcommended HHPT but pt declined. Goals Bed Mobility Goal Independent Transfer Goal Independent,Front Wheeled Walker,Four Wheeled Walker Gait Goal Independent,Front Wheel Walker ,Four Wheel Walker Gait Distance 100 feet Other Goals Up/down 5 steps with rail and SBA. Up/down 17 steps with wall support and SBA. She will demonstrate use of her spine precautions during functional mobility. Days to Meet Goals 7 Frequency of Treatment Frequency Of Treatment Twice a Day Treatment Plan Physical Therapy Treatment Plan Bed Mobility Training,Transfer Training,Gait Training, Therapeutic Exercise,Balance Retraining,Post Op Education, Discharge Planning,Hot or Cold Pack,Neuromuscular Re-ed Other Recommendations and Next Treatment gait w/ FWW, standing balance Focus static. Precautions Lumbar Precautions Log Roll,No Twisting,Limit Bending,Lifting Restriction of 10 lbs,Gait Belt above Incisional Area Other Precautions Good recall precautions and maintain during mobility. Recommendations To Nursing Amount of Assist Needed Independent,Standby Assistance Discharge Recommendations PT Discharge Recommendations Home with Assistance,Home Health Transportation Needs at Discharge Private Vehicle
--- NOTE | 2022-04-21 11:19 | P.DS_ITS ---
History of Present Illness History of Present Illness Date Patient Seen: 04/21/22 Time Patient Seen: 07:00 Chief complaint: TLIF Discharge Providers Provider Date of admission: 04/18/22 06:18 Discharge Date: 04/21/22 Primary care physician: Morenita Zimmer MD Consults: 04/14/22 11:30 Consult to Rehabilitation Counsellor Routine Comment: Pt wants to DC tp a SNF 04/18/22 13:34 Consult to Occupational Therapy Evaluate & Treat Comment: Physician Instructions: Evaluate and treat Consult to Physical Therapy Evaluate & Treat Comment: Physician Instructions: Evaluate and Treat 04/20/22 12:16 Consult to Physical Therapy Evaluate & Treat Comment: Physician Instructions: Youth FWW For Home use Discharge provider: Loren Hou PA-C Summary Hospital Course Discharge Diagnosis: Status post TLIF Hospital Course: Operative Date/Time/Diagnoses Date of procedure: 04/18/22 Time of procedure: 07:40 Pre-op diagnosis: 1. L4-5, L5-S1 spinal stenosis 2. Lumbar scoliosis 3. Lumbar spondylosis with radiculopathy Post-op diagnosis: same Procedure & Clinicians Procedure: 1. L4-5, L5-S1 Postero-lateral and posterior interbody fusion 2. L4-5, L5-S1 interbody cage placement. 3. L4-5, L5-S1 decompressive laminectomy with bilateral facetecomies 4. L4-5, L5-S1 Posterior segmental instrumentation 5. [place] of bone marrow from iliac crest 6. Utilization of microsurgical technique and operating microscope 7. Utilization of robotic assisted navigation Same procedure as scheduled: Yes Indications: ?Patient has been having chronic back pain and worsening lumbar radiculopathy. Patient failed multiple conservative management with worsening pain weakness and numbness in her lower extremity.? Patient has been having difficulty performing activity of daily living.? After discussing risks benefits of treatment options, patient elected proceed with surgery. Surgeon: Julianne Rueda Credit Correspondence Clerk: Newton Ruiz Click Yes if Unassisted: No Anesthesia Type: General Operative Notes Closure Type: primary Specimen(s): none sent Prosthetic devices, grafts, tissues, transplants, or devices: Globus CREO MIS screws, Rise cages Applied: catheter Estimated Blood Loss (mL): 150 Blood products transfused: none Status at Discharge Cognitive/behavioral status at discharge: oriented Overall status at discharge: patient is progressing back to baseline Exam Vital Signs (past 8 hours): - 04/21/22 05:25 04/21/22 08:29 Temperature 96.9 F L 97.9 F Pulse Rate 95 H 89 Respiratory Rate 19 18 Blood Pressure 142/72 H 148/91 H Pulse Oximetry 94 92 Oxygen Flow Rate 0 0 Oxygen Delivery Method Room Air Oxygen Flow Rate 0 Objective Labs 04/19/22 04:46 PFSH Medical History Cervical disc disorder at C6-C7 level with radiculopathy Depression Facet arthropathy, lumbar Heart murmur HLD (hyperlipidemia) HTN (hypertension) Kidney stones Lumbar radiculopathy Neck pain ELENI on CPAP Pre-diabetes Rash (04/14/22) Seasonal allergies Spinal stenosis SVT (supraventricular tachycardia) (~2002) Surgical History History of appendectomy History of bunionectomy of right great toe History of History of hysterectomy History of urologic surgery Hx of colonoscopy Hx of lithotripsy Hx of right cataract extraction Status post right foot surgery [place] teeth removed Social History marital status: household members: family Smoking Status: Never smoker alcohol intake: never Discharge Assessment & Plan Assessment and Plan Assessment: Patient is progressing as expected after surgery Plan of Treatment: Plan for discharge to home today. Discharge Plan Discharge Plan Patient Disposition: Home Discharge orders & Medications Prescriptions: New acetaminophen 325 mg Tablet 650 mg PO Q6HR PRN (Reason: Pain, Mild (1-3)) Qty: 120 0RF hydroxyzine pamoate 25 mg Capsule 25 mg PO Q4HR PRN (Reason: Nausea And Vomiting) Qty: 40 0RF oxycodone 5 mg Tablet 5 mg PO Q4-6H PRN (Reason: Pain, Severe (7-10)) Qty: 40 0RF Continued magnesium 250 mg Tablet 500 mg PO BEDTIME omega 6-dvy-fuy-fish oil [Fish Oil] 1,000 mg (120 mg-180 mg) Capsule 1 cap PO BEDTIME citalopram [Celexa] 20 mg tablet 40 mg PO BEDTIME hydrochlorothiazide 25 mg tablet 25 mg PO BEDTIME lovastatin 40 mg tablet 40 mg PO QPM Follow up/Referrals: Julianne Rueda MD [Physician] - As previously scheduled Morenita Zimmer MD [Primary Care Provider] - Diet/Activity/Treatments Diet: Diet as Tolerated Activity: Up and walking as tolerated. No deep bending, twisting, lifting over 10 lb. Skin/Wound/Dressing Care Report to your healthcare provider any signs of infection, such as:: chills, fever, night sweats, increased pain, unusual drainage and unusual redness Dressing: Keep dressing clean, dry, and intact until 2 week follow up with orthopedics. If dressing becomes wet please call our office for dressing change. Visit Report/Discharge Packet Instructions: DI for Transforaminal Lumbar Interbody Fusion Stand Alone Forms: Patient Portal/API, Stroke Signs & Symptoms, Surgery Discharge Discharge Data Primary Care Provider: Morenita Zimmer Quality VTE Deep Vein Thrombosis/Pulmonary Embolism Present on Admission: No
--- NOTE | 2022-04-21 11:41 | P.DS_ITS ---
History of Present Illness History of Present Illness Date Patient Seen: 04/21/22 Time Patient Seen: 11:41 Chief complaint: TLIF Narrative: Patient is resting comfortably in bed this morning. She states that she is doing better today than previous days. She now plans to discharge home instead of a fci facility. She is looking forward to this as soon as her son comes to pick her up.. Discharge Providers Provider Date of admission: 04/18/22 06:18 Discharge Date: 04/21/22 Primary care physician: Morenita Zimmer MD Consults: 04/14/22 11:30 Consult to Ecdis N Navigation Operator Routine Comment: Pt wants to DC tp a SNF 04/18/22 13:34 Consult to Occupational Therapy Evaluate & Treat Comment: Physician Instructions: Evaluate and treat Consult to Physical Therapy Evaluate & Treat Comment: Physician Instructions: Evaluate and Treat 04/20/22 12:16 Consult to Physical Therapy Evaluate & Treat Comment: Physician Instructions: Youth FWW For Home use Discharge provider: Loren Hou PA-C Summary Hospital Course Discharge Diagnosis: Status post TLIF Exam Vital Signs (past 8 hours): - 04/21/22 05:25 04/21/22 08:29 Temperature 96.9 F L 97.9 F Pulse Rate 95 H 89 Respiratory Rate 19 18 Blood Pressure 142/72 H 148/91 H Pulse Oximetry 94 92 Oxygen Flow Rate 0 0 Oxygen Delivery Method Room Air Oxygen Flow Rate 0 Objective Labs 04/19/22 04:46 PFSH Medical History Cervical disc disorder at C6-C7 level with radiculopathy Depression Facet arthropathy, lumbar Heart murmur HLD (hyperlipidemia) HTN (hypertension) Kidney stones Lumbar radiculopathy Neck pain ELENI on CPAP Pre-diabetes Rash (04/14/22) Seasonal allergies Spinal stenosis SVT (supraventricular tachycardia) (~2002) Surgical History History of appendectomy History of bunionectomy of right great toe History of History of hysterectomy History of urologic surgery Hx of colonoscopy Hx of lithotripsy Hx of right cataract extraction Status post right foot surgery [place] teeth removed Social History marital status: household members: family Smoking Status: Never smoker alcohol intake: never Discharge Plan Discharge Plan Patient Disposition: Home Discharge orders & Medications Prescriptions: New acetaminophen 325 mg Tablet 650 mg PO Q6HR PRN (Reason: Pain, Mild (1-3)) Qty: 120 0RF hydroxyzine pamoate 25 mg Capsule 25 mg PO Q4HR PRN (Reason: Nausea And Vomiting) Qty: 40 0RF oxycodone 5 mg Tablet 5 mg PO Q4-6H PRN (Reason: Pain, Severe (7-10)) Qty: 40 0RF Continued magnesium 250 mg Tablet 500 mg PO BEDTIME omega 7-wuo-giq-fish oil [Fish Oil] 1,000 mg (120 mg-180 mg) Capsule 1 cap PO BEDTIME citalopram [Celexa] 20 mg tablet 40 mg PO BEDTIME hydrochlorothiazide 25 mg tablet 25 mg PO BEDTIME lovastatin 40 mg tablet 40 mg PO QPM Follow up/Referrals: Julianne Rueda MD [Physician] - As previously scheduled Morenita Zimmer MD [Primary Care Provider] - Diet/Activity/Treatments Diet: Diet as Tolerated Activity: Up and walking as tolerated Skin/Wound/Dressing Care Report to your healthcare provider any signs of infection, such as:: chills, fever, night sweats, increased pain, unusual drainage and unusual redness Dressing: Keep dressing clean, dry, and intact until 2 week follow up with orthopedics. If dressing becomes wet please call our office for dressing change. Visit Report/Discharge Packet Instructions: DI for Transforaminal Lumbar Interbody Fusion Stand Alone Forms: Patient Portal/API, Stroke Signs & Symptoms, Surgery Discharge Discharge Data Primary Care Provider: Morenita Zimmer Quality VTE Deep Vein Thrombosis/Pulmonary Embolism Present on Admission: Patricia
[2022-04-21 12:27] VITALS: BP 122/63; PULSE 88; RESP 18; TEMP 36.8; O2SAT 92
--- NOTE | 2022-04-21 13:59 | CM.DPNOTE ---
DC Note Patient has been discharged home today. Spoke w/Trung Russo yesterday and all updated therapy notes had been faxed with the request for SNF auth. [facility] had accepted for admission Patient had been walking down the halls POD1 and climbing stairs so discussion began early with patient that Trung likely would deny SNF auth. Inevitably, Trung did deny and discussed this w/patient yesterday afternoon, appeal process reviewed by Trung Met w/patient yesterday to review DCP and patient was tearful, appeared overwhelmed and had a difficult time problem solving- stating that she felt she was being shamed about not preparing her home Patient discharged today and arranged transport via son's vehicle. Discussed option of HH and patient denies the need, stating her house is much too cluttered I would feel embarrassed Plan: DC home w/family via private vehicle, close outpatient follow up recommended KASHMIR
== END 2022-04-21 14:49 | disposition home or self-care (01) | DRG 455 ==
PROVIDERS: Admitting Provider Orthopaedic Surgery Orthopaedic Surgery of the Spine; PCP Family Medicine; Referring Provider Family Medicine; Visit Provider Orthopaedic Surgery Orthopaedic Surgery of the Spine
PROC: 0SG00AJ Fusion of Lumbar Vertebral Joint with Interbody Fusion Device, Posterior Approach, Anterior Column, Open Approach (ICD-10-PCS; principal; 2022-04-18 07:45)
DX: M41.9 Scoliosis, unspecified (principal); M48.062 Spinal stenosis, lumbar region with neurogenic claudication; M43.16 Spondylolisthesis, lumbar region; M48.07 Spinal stenosis, lumbosacral region; M47.26 Other spondylosis with radiculopathy, lumbar region; F32.A Depression, unspecified; I10 Essential (primary) hypertension; E78.5 Hyperlipidemia, unspecified; Z20.822 Contact with and (suspected) exposure to COVID-19
CPT/HCPCS: 36415; 72100; 76000; 82962; 85014; 85018; 87635; 94760; 97116; 97162; 97165; 97530; 97535; C9803; A9270; C1713; C9290; J0171; J0330; J0690; J1100; J1170; J2250; J2405; J2704; J3010; J3410

== ENCOUNTER 2022-05-08 13:35 | Emergency (ER) | payer OTHER, SELFPAY ==
[2022-04-18 06:22] VITALS: BMI 40.0
[2022-05-08 13:45] VITALS: BP 156/72; PULSE 88; RESP 16; TEMP 36.6; O2SAT 97; BMI 40.0
--- NOTE | 2022-05-08 13:54 | DI.RAD.S_ITS ---
PROCEDURE: XR LUMBAR SPINE 2-3V INDICATIONS: sciatic R side pain, recent spinal fusion TECHNIQUE: 3 views of the lumbar spine were acquired. COMPARISON: [facility], CT, CT LUMBAR SPINE WITHOUT CONTRAST, 02/23/2022, 10:44. [facility], CR, XR LUMBAR SPINE 2-3V, 04/18/2022, 9:15. FINDINGS: Bones: There are 5 non rib-bearing lumbar type vertebral bodies. Mild apex right curvature of the lumbar spine. Posterior fixation of L4 through S1 with intervertebral disc spacers at L4-5 and L5-S1. Moderate spondylosis with large left osteophyte formation at L3-L4 and to a lesser degree at L2-L3. Soft tissues: Overlying bowel gas pattern is normal. No suspicious soft tissue calcifications. IMPRESSION: Posterior fixation of the lumbar spine without evidence of hardware complication. Dictated by: David Burger M.D. on 05/08/2022 at 13:10 Approved by: David Burger M.D. on 05/08/2022 at 13:15
--- NOTE | 2022-05-08 17:26 | ED_ITS ---
HPI - Extremity Problem <Sadaf Bob PA-C - Last Filed: 05/08/22 18:14> General Chief complaint: Extremity Problem,Nontraumatic Stated complaint: back pain, muscle cramping down leg Time Seen by Provider: 05/08/22 13:54 Source: patient Mode of arrival: Ambulatory History of Present Illness HPI Narrative: 72-year-old female presents with concern for right-sided low back pain similar to her sciatica but with spasming and more severe than usual. Patient does note a history of having had lumbar spinal fusion 3 weeks prior. This episode of pain started about a week ago when she already saw her orthopedic surgeon's office provider who put her on a dose of steroid medicine with taper and a muscle relaxer. She states that the steroids were helpful but the muscle relaxer did not help. Yesterday she felt like her pain worsened and she is having intense shooting pains from her right low back that go into her buttock down the back of her thigh towards her ankle. She states that prior to her surgery she did have sciatic problems however she did not have the symptoms going down as far in her leg. Patient denies any loss of bowel or bladder function, urinary frequency, diarrhea, constipation, change in appetite, fatigue, new numbness or tingling, saddle paresthesias, new extremity weakness or any other symptoms. Related Data Home Medications Medication Instructions Recorded Confirmed hydrochlorothiazide 25 mg tablet 25 mg PO BEDTIME 03/23/20 04/18/22 lovastatin 40 mg tablet 40 mg PO QPM 03/23/20 04/18/22 citalopram 20 mg tablet (Celexa) 40 mg PO BEDTIME 04/14/22 04/18/22 magnesium 250 mg tablet 500 mg PO BEDTIME 04/14/22 04/18/22 omega 3-ydo-haf-fish oil 1,000 mg 1 cap PO BEDTIME 04/14/22 04/18/22 (120 mg-180 mg) capsule (Fish Oil) Previous Rx's Medication Instructions Recorded acetaminophen 325 mg tablet 650 mg PO Q6HR PRN Pain, Mild 04/21/22 (1-3) #120 tabs hydroxyzine pamoate 25 mg capsule 25 mg PO Q4HR PRN Nausea And 04/21/22 Vomiting #40 caps oxycodone 5 mg tablet 5 mg PO Q4-6H PRN Pain, Severe 04/21/22 (7-10) #40 tabs baclofen 10 mg tablet 10 mg PO TID muscle spasm #21 tabs 05/08/22 prednisone 20 mg tablet 40 mg PO DAILY back pain 6 days 05/08/22 #12 tabs Allergies Allergy/AdvReac Type Severity Reaction Status Date / Time No Known Drug Allergies Allergy Verified 04/18/22 06:43 Review of Systems <Sadaf Bob PA-C - Last Filed: 05/08/22 18:14> Review of Systems Narrative: Unremarkable except as noted in the HPI Patient History <Sadaf Bob PA-C - Last Filed: 05/08/22 18:14> Medical History Cervical disc disorder at C6-C7 level with radiculopathy Depression Facet arthropathy, lumbar Heart murmur HLD (hyperlipidemia) HTN (hypertension) Kidney stones Lumbar radiculopathy Neck pain ELENI on CPAP Pre-diabetes Rash (04/14/22) Seasonal allergies Spinal stenosis SVT (supraventricular tachycardia) (~2002) Surgical History History of appendectomy History of bunionectomy of right great toe History of History of hysterectomy History of urologic surgery Hx of colonoscopy Hx of lithotripsy Hx of right cataract extraction Status post right foot surgery [place] teeth removed Social History marital status: household members: family Smoking Status: Never smoker alcohol intake: never Smoking Status: Never smoker Substance Use Type: does not use Exam <Sadaf Bob PA-C - Last Filed: 05/08/22 18:14> Narrative Exam Narrative: GENERAL: 72 year old patient appears stated age. Tearful, obese, Well-developed patient, in moderate distress. HEAD: Atraumatic. Normocephalic. EYES: Pupils equal round and reactive. Extraocular motions intact. No scleral icterus. No injection or drainage. ENT: Nose without bleeding, purulent drainage. Airway patent. NECK: Trachea midline. CARDIOVASCULAR: Regular rate and rhythm without murmurs, gallops, or rubs. RESPIRATORY: Clear to auscultation. Breath sounds equal bilaterally. No wheezes, rales, or rhonchi. GASTROINTESTINAL: Abdomen protuberant, nondistended. EXTREMITIES: No edema or joint tenderness. BACK: There are well-healing surgical scars present lateral to lumbar spine bilaterally with no erythema heat swelling or drainage. Patient has tenderness in the sacroiliac region on the right side as well as lumbar paraspinal muscle spasming on the right side and pain with palpation of the superior buttock. Patient does have 4/5 strength on the right side and 5/5 on the left with active flexion and extension at the hip and knee. Back is otherwise nontender. No flank tenderness. NEURO: AOx3. SKIN: No rash or erythema of visible areas Initial Vital Signs Initial Vital Signs: Vital Signs Temperature 97.9 F 05/08/22 13:45 Pulse Rate 88 05/08/22 13:45 Respiratory Rate 16 05/08/22 13:45 Blood Pressure 156/72 H 05/08/22 13:45 Pulse Oximetry 97 05/08/22 13:45 Oxygen Delivery Method Room Air 05/08/22 13:45 <Gopal Parker DO - Last Filed: 05/09/22 07:58> Initial Vital Signs Initial Vital Signs: Vital Signs Temperature 97.9 F 05/08/22 13:45 Pulse Rate 88 05/08/22 13:45 Respiratory Rate 16 05/08/22 13:45 Blood Pressure 156/72 H 05/08/22 13:45 Pulse Oximetry 97 05/08/22 13:45 Oxygen Delivery Method Room Air 05/08/22 13:45 Course <Sadaf Bob PA-C - Last Filed: 05/08/22 18:14> Orders Ordered: Discontinued Medications Ketorolac Tromethamine (Ketorolac 30 Mg/Ml Vial) 30 mg IM NOW ONE Stop: 05/08/22 17:26 Last Admin: 05/08/22 17:30 Dose: 30 mg Documented By: MIKHAIL Vital Signs Vital signs: Vital Signs - 8 hr 05/08/22 13:45 Temperature 97.9 F Pulse Rate 88 Respiratory Rate 16 Blood Pressure 156/72 H Pulse Oximetry 97 Oxygen Delivery Method Room Air <Gopal Parker DO - Last Filed: 05/09/22 07:58> Orders Ordered: Discontinued Medications Ketorolac Tromethamine (Ketorolac 30 Mg/Ml Vial) 30 mg IM NOW ONE Stop: 05/08/22 17:26 Last Admin: 05/08/22 17:30 Dose: 30 mg Documented By: MIKHAIL Vital Signs Vital signs: Vital Signs - 8 hr 05/08/22 13:45 Temperature 97.9 F Pulse Rate 88 Respiratory Rate 16 Blood Pressure 156/72 H Pulse Oximetry 97 Oxygen Delivery Method Room Air MDM - Extremity (Nontraumatic) <Sadaf Bob PA-C - Last Filed: 05/08/22 18:14> Differential Diagnosis Differential diagnosis: Likely other (sciatica, muscle spasm, UTI, kidney stone) Medical Records Attestation: I reviewed the patient's medical records. Lab Data Attestation: I reviewed the patient's lab results. Labs: Urine Dip Bedside Urine Glucose Negative Bedside Urine Bilirubin - Negative Bedside Urine Ketone - Negative Urine Specific [place] 1.010 Bedside Urine Occult Blood - Negative Bedside Urine pH 8.0 Bedside Urine Protein - Negative Bedside Urine Urobilinogen - Negative Bedside Urine Nitrite - Negative Bedside Urine Leukocytes - Negative Esterase Imaging Data Lumbar spine: My Impression: I have reviewed the patient's imaging agree with Radiology interpretation. Radiologist's Impression: [address] [address] XRay Report Signed Patient: Sofía Alatorre MR#: [id number] : 1950 Acct:[id number] Age/Sex: 72 / F Date of Service: 05/08/22 Loc: ED Accession Number: [id number] ?? Procedure: XR lumbar spine 2-3V Ordering Provider: Sadaf Bob P.A-C PROCEDURE:? XR LUMBAR SPINE 2-3V ? INDICATIONS:? sciatic R side pain, recent spinal fusion ? TECHNIQUE:? 3 views of the lumbar spine were acquired.? ? COMPARISON:? [facility], CT, CT LUMBAR SPINE WITHOUT CONTRAST, 02/23/2022, 10:44.? [facility], CR, XR LUMBAR SPINE 2-3V, 04/18/2022, 9:15. ? FINDINGS:? ? Bones:? There are 5 non rib-bearing lumbar type vertebral bodies.? Mild apex right curvature of the lumbar spine.? Posterior fixation of L4 through S1 with intervertebral disc spacers at L4-5 and L5-S1.? Moderate spondylosis with large left osteophyte formation at L3-L4 and to a lesser degree at L2-L3. ? Soft tissues:? Overlying bowel gas pattern is normal.? No suspicious soft tissue calcifications.? ? ? IMPRESSION:? Posterior fixation of the lumbar spine without evidence of hardware complication.? ? ? Dictated by: David Burger M.D. on 05/08/2022 at 13:10 ? ? Approved by: David Burger M.D. on 05/08/2022 at 13:15?? [facility] Narrative Medical decision making narrative: This is a 72-year-old female with history of lumbar spinal fusion surgery 3 weeks prior and 1 week of renewed sciatic type pain that is right-sided for which she saw her surgical team 6 days ago. Patient had a Re worsening of her symptoms after reducing and tapering off of her prednisone with increased pain beginning yesterday and muscle spasming. Patient tearful today and has difficulty getting comfortable due to her pain. Did note that she tried opioid medication last night with limited effect. Talked to the patient extensively about options and about doing further workup and evaluation including labs versus simply treating based on her symptoms with a 2nd course of steroid and a muscle relaxer that is different from though she has tried that have been ineffective and a shot of Toradol today in the emergency department. Based on patient's exam I have low suspicion for acute infection or spinal cord compression/cauda equina. Patient does have good strength on the affected right side and I suspect much of her discomfort is due to muscle spasming as well as inflammation. Her urine dip today was unremarkable and not suggestive of a UTI. After discussion patient does state that she would prefer to just get the medications and plans to follow-up with her doctor/surgical team tomorrow understands return precautions, and ED precautions all questions answered. Patient is prescribed prednisone, as well as baclofen. <Gopal Parker, DO - Last Filed: 05/09/22 07:58> Lab Data Labs: Urine Dip Bedside Urine Glucose Negative Bedside Urine Bilirubin - Negative Bedside Urine Ketone - Negative Urine Specific [place] 1.010 Bedside Urine Occult Blood - Negative Bedside Urine pH 8.0 Bedside Urine Protein - Negative Bedside Urine Urobilinogen - Negative Bedside Urine Nitrite - Negative Bedside Urine Leukocytes - Negative Esterase Discharge Plan Departure Patient Disposition: Home Clinical Impression: Acute right-sided low back pain with sciatica, Back muscle spasm Activity Restrictions/Additional Instructions: Thank you for letting us be part of your care today in the emergency department. You came in with concern for exacerbation of your sciatica and back spasming, we did do an x-ray today which shows her surgical hardware appears to be in the normal position and there were no other findings noted by Radiology. We also checked her urine today which did not show evidence of urinary tract infection. I recommend that you continue with ice on and off as this has been helpful for you, do not take any ibuprofen today as we have given you a shot of Toradol, you can continue ibuprofen alternating with Tylenol tomorrow for your pain as needed, am also giving you a short course of steroid medicine and a muscle relaxer. Please do not take the muscle relaxer before driving or operating any equipment. Be cautious about mixing it with any opiate medications or any alcohol. As we discussed I strongly recommend you follow-up closely with your orthopedic surgeon team tomorrow. There is no evidence of an emergent or life threatening illness at this time, but follow up with your doctor in 1-2 days is recommended nonetheless to continue to rule out serious underlying causes of your symptoms. Please call the office for an appointment. Please return to the Emergency Department for any worsening or persistent symptoms. Please take medications as directed. Prescriptions: New baclofen 10 mg tablet 10 mg PO TID Qty: 21 1RF prednisone 20 mg tablet 40 mg PO DAILY 6 Days Qty: 12 0RF No Action magnesium 250 mg Tablet 500 mg PO BEDTIME omega 3-efy-khq-fish oil [Fish Oil] 1,000 mg (120 mg-180 mg) Capsule 1 cap PO BEDTIME citalopram [Celexa] 20 mg tablet 40 mg PO BEDTIME acetaminophen 325 mg Tablet 650 mg PO Q6HR PRN (Reason: Pain, Mild (1-3)) Qty: 120 0RF hydroxyzine pamoate 25 mg Capsule 25 mg PO Q4HR PRN (Reason: Nausea And Vomiting) Qty: 40 0RF oxycodone 5 mg Tablet 5 mg PO Q4-6H PRN (Reason: Pain, Severe (7-10)) Qty: 40 0RF hydrochlorothiazide 25 mg tablet 25 mg PO BEDTIME lovastatin 40 mg tablet 40 mg PO QPM Referrals: Morenita Zimmer MD [Primary Care Provider] - Stand Alone Forms: Patient Portal/API <Gopal Parker DO - Last Filed: 05/09/22 07:58> Cosign ED Attending Cosignature Attestation: I was immediately available in the department for consultation. Documentation has been reviewed. I agree with assessment and plan.
[2022-05-08] MEDS: KETOROLAC 30 MG/ML VIAL IM (17:30)
[2022-05-08 17:48] VITALS: BP 162/78; PULSE 68; RESP 18; O2SAT 97
== END 2022-05-08 17:54 | disposition home or self-care (01) ==
PROVIDERS: Emergency Provider Student in an Organized Health Care Education/Training Program; PCP Family Medicine
DX: M54.41 Lumbago with sciatica, right side (principal); M62.830 Muscle spasm of back; Z98.1 Arthrodesis status
CPT/HCPCS: 72100; 81003; 96372; 99283; J1885

== ENCOUNTER 2022-09-21 09:56 | Inpatient (IN) | payer OTHER, SELFPAY ==
[2022-04-18 06:22] VITALS: BMI 40.0
[2022-09-14 16:32] VITALS: BMI 42.7
[2022-09-21] VITALS (11 sets, daily range): BP systolic 118–158; BP diastolic 47–89; PULSE 79–103; RESP 12–20; TEMP 35.6–36.5; O2SAT 91–96; BMI 42.7
--- NOTE | 2022-09-21 | DI.RAD.S_ITS ---
PROCEDURE: XR CERVICAL SPINE 2V OR 3V INDICATIONS: C4-5 C5-6 ACDF TECHNIQUE: 2 view(s) of the cervical spine were acquired. COMPARISON: [facility], XR CERVICAL SPINE 2 OR 3 VIEWS, 07/28/2022, 10:57. FINDINGS: 2 intraoperative fluoroscopy images demonstrate discectomy and anterior fusion at C4-C5 and C5-C6. Note is made of a nasogastric tube anterior to cervical spine. IMPRESSION: Discectomy and anterior fusion at C4-C5 and C5-C6. Dictated by: Monie Ghosh M.D. on 09/21/2022 at 14:44 Approved by: Monie Ghosh M.D. on 09/21/2022 at 14:45
[2022-09-21] MEDS: LACTATED RINGERS 1,000 ML 84 ML IV (10:28)
--- NOTE | 2022-09-21 11:29 | PM.PREOP ---
Pre-operative Note COVID-19 Criteria for continued procedure: Expected advancement of disease process, Possibility delay results in more complex future surgery or treatment, Increased loss of function, Continuing or worsening of significant or severe pain, Deterioration of the patient's condition or overall health and Delay expected to result in less-positive ultimate med/surg outcome Interval Note History & Physical reviewed/Exam performed by Physician: Yes Changes to H&P: No
--- NOTE | 2022-09-21 12:08 | PM.OP.1 ---
Operative Date/Time/Diagnoses Date of procedure: 09/21/22 Time of procedure: 12:30 Pre-op diagnosis: 1. C4-5, C5-6 spinal stenosis 2. Cervical spondylosis with radiculopathy Post-op diagnosis: same Procedure & Clinicians Procedure: 1. C4-5, C5-6 anterior cervical diskectomy and fusion 2. C4-5, C5-6 anterior interbody cage placement 3. C4-5, C5-6 anterior instrumentation with plate and screw placement in C5-C6 and C7 vertebrae 4. Utilization of microsurgical technique and operating microscope Same procedure as scheduled: Yes Indications: Patient has been having chronic neck pain and worsening cervical radiculopathy. Patient failed multiple conservative management with worsening pain weakness and numbness in her upper extremity. Patient has been having difficulty performing activity of daily living. After discussing risks benefits of treatment options, patient elected proceed with surgery. Surgeon: Julianne Rueda Limnologist: Isa Huber Click Yes if Unassisted: No Anesthesia Type: General Operative Notes Closure Type: primary Specimen(s): none sent Prosthetic devices, grafts, tissues, transplants, or devices: Globus Extend Plate, Hedron C cages Procedure in detail: Patient was seen in the preoperative area. Risks and benefits of the surgery was discussed with the patient. Operative consent was obtained and placed in the chart. Patient was then taken to the operative room. Prophylactic antibiotic was given less than 0.5 hr prior to skin incision. General anesthesia was administered. Patient was placed into a supine position on her radiolucent table. Bilateral shoulders were taped down to allow proper C-arm imaging. Anterior cervical area was prepped and draped in a sterile fashion. Time-out was performed at this time. Using lateral C-arm imaging, the level between C4 and C6 was identified and marked on patient's neck. A oblique incision from midline towards medial border of sternocleidomastoid muscle was made. The platysma muscle was incised in line with skin incision. Metzenbaum scissor was used to develop the plane between the medial border of sternocleidomastoid d and the strap muscles medially. The carotid sheath and its contents were identified and protected behind the hand-held retractor during the entire case. The plane between the carotid sheath and strap muscles was developed with Metzenbaum scissors. Dissection was made down to the level of the anterior cervical fascia. Longus colli muscle was incised on the anterior aspect of vertebral bodies bilaterally from C4-C6. Spinal needle was placed into the C5-6 disc space and confirmed with lateral C-arm imaging. Using microsurgical technique and operative microscope, anterior cervical diskectomy was performed at C4-5 and C5-6 level. This was done by removing the disc material, removing the anterior and posterior osteophytes posterior longitudinal ligaments along with performing bilateral foraminotomies at both levels. Patient was found to have severe central and foraminal stenosis at both levels. Patient's stenosis was fully decompressed after decompression was completed. After the diskectomy was completed, 2 anterior interbody cages were obtained. The cages were packed with DBM bone grafting material. One cage each along with the bone grafting material was then packed into the interbody spaces from C4-6 with one cage into each interbody level. After the cages were placed, the anterior cervical plate was stabilized to the C4-6 vertebrae using 2 screws at each each level. Total 6 screws were placed. After confirming placement of the hardware with AP and lateral C-arm imaging, the screws were locked into the plate using the locking mechanism and torque limiting screwdriver. After the hardware was placed and confirmed with AP and lateral C-arm imaging, the wound was irrigated with sterile normal saline. The platysma muscle and the subcutaneous tissue was closed with 2-0 Vicryl. The skin was closed with 4-0 Monocryl and Steri-Strips. The Operation could not have been safely performed without compromising the technical result or length of the procedure, without the assistance of a skilled certified surgical technologist. The certified surgical technologist was medically necessary for proper positioning, retraction and manipulation of instruments, proper exposure, surgical preparation, and manipulation of tissue. Patient tolerated the procedure well. Patient was transferred recovery room in stable condition. There were no complications. Complications: none Post-operative Condition: stable Disposition: PACU Plan for aftercare: Admit to inpatient hospital
[2022-09-21] MEDS: CEFAZOLIN 2 GM/100 ML PREMIX 100 ML IV ×2 (12:20→19:59)
--- NOTE | 2022-09-21 12:33 | SUR.OPER ---
Supine on padded OR bed, head on pillow, arms padded and tucked at sides, legs uncrossed, safety belt at thigh, tape over blanket over lower legs . cloth tape used to hold traction down on shoulders.
[2022-09-21] MEDS: BUPIVACAINE 0.25% W/ EPI (PF) 10 ML VIAL 30 ML INJ (12:52)
[2022-09-21] MEDS: hydrOXYzine 50 MG/ML INJ 25 MG IM (14:33)
[2022-09-21] MEDS: OXYCODONE IR 5 MG TABLET PO ×3 (14:34→20:49)
[2022-09-21] MEDS: LACTATED RINGERS 1,000 ML 125 ML IV ×2 (15:05→23:01)
[2022-09-21] MEDS: HYDROMORPHONE 0.5 MG INJ IV (15:09)
--- NOTE | 2022-09-21 16:28 | PC.NURSE ---
Pt arrives to room 224 at 1500 this afternoon A&Ox4. VSS, afebrile 89-93% O2 sats on RA. Patient is placed on 2 LNC for support as she states she is sleepy and would like to take a nap. Frequent VSS per postop protocol, Son Carlos at bedside supportive. Patient with soft collar in place, Dressing c/d/i underneath. She reports pain 7/10 improved after prn 0.5 hydromorphone IV administered. She is able to rest a short while and awakens for repositioning, c/o pain and tightness behind shoulder blades. She denies, pain /numbness or tingling to B arms and hands. She has +CMS to BLE's as well.Continuous monitoring.
--- NOTE | 2022-09-21 17:17 | PT-IP ANOTE ---
Attempted to perform initial PT evaluation. Pt had just gotten up and gone to the restroom with nursing, between fatigue from this and dinner coming, pt refused, requested PT return tomorrow.
[2022-09-21] MEDS: ACETAMINOPHEN 325 MG TABLET 650 MG PO (18:06)
[2022-09-21] MEDS: BACLOFEN 10 MG TABLET PO (20:12)
[2022-09-21] MEDS: DOCUSATE 100 MG CAPSULE PO (20:17)
[2022-09-21] MEDS: hydroCHLOROthiazide 25 MG TABLET PO (20:17)
[2022-09-21] MEDS: FISH OIL 1,000 MG CAPSULE 1000 MG PO (20:17)
[2022-09-21] MEDS: ATORVASTATIN 20 MG TABLET 10 MG PO (20:18)
[2022-09-21] MEDS: SENNOSIDES 8.6 MG TABLET 17.2 MG PO (20:18)
[2022-09-21] MEDS: CITALOPRAM 10 MG TABLET 40 MG PO (20:19)
[2022-09-22 00:11] VITALS: BP 120/63; PULSE 46; RESP 16; TEMP 36.3; O2SAT 97
[2022-09-22] MEDS: OXYCODONE IR 5 MG TABLET PO ×3 (01:52→15:01)
[2022-09-22] MEDS: ACETAMINOPHEN 325 MG TABLET 650 MG PO ×3 (01:53→15:01)
[2022-09-22 03:00] VITALS: PULSE 90; O2SAT 95
[2022-09-22 03:26] VITALS: BP 113/56; PULSE 96; RESP 16; TEMP 36.2; O2SAT 92
[2022-09-22] MEDS: CEFAZOLIN 2 GM/100 ML PREMIX 100 ML IV (03:35)
[2022-09-22] MEDS: BACLOFEN 10 MG TABLET PO ×2 (03:58→09:13)
--- NOTE | 2022-09-22 07:45 | PM.DS.1 ---
History of Present Illness History of Present Illness Date Patient Seen: 09/22/22 Chief complaint: Neck pain Narrative: Pain is [id number]. Denies fever or chills. No nausea or vomiting. No difficulty breathing or swallowing. Discharge Providers Provider Date of admission: 09/21/22 09:56 Discharge Date: 09/22/22 Primary care physician: Morenita Zimmer MD Consults: 09/21/22 14:48 Consult to Occupational Therapy Evaluate & Treat Comment: Physician Instructions: Evaluate and treat Consult to Physical Therapy Evaluate & Treat Comment: Physician Instructions: Evaluate and Treat Discharge provider: Newton Ruiz PA-C Summary Hospital Course Discharge Diagnosis: 1. C4-5, C5-6 spinal stenosis 2. Cervical spondylosis with radiculopathy Hospital Course: 1.? C4-5, C5-6 anterior cervical diskectomy and fusion 2.? C4-5, C5-6 anterior interbody cage placement 3.? C4-5, C5-6 anterior instrumentation with plate and screw placement in C5-C6 and C7 vertebrae 4.? Utilization of microsurgical technique and operating microscope Same procedure as scheduled: Yes Indications: Patient has been having chronic neck pain and worsening cervical radiculopathy. Patient failed multiple conservative management with worsening pain weakness and numbness in her upper extremity.? Patient has been having difficulty performing activity of daily living.? After discussing risks benefits of treatment options, patient elected proceed with surgery. Surgeon: Julianne Rueda Technical Recruiter: Isa Huber Click Yes if Unassisted: No Anesthesia Type: General Operative Notes Closure Type: primary Specimen(s): none sent Prosthetic devices, grafts, tissues, transplants, or devices: Globus Extend Plate, Hedron C cages Patient admitted to the hospital for the above-mentioned procedure. Patient consented to the same. Patient underwent cervical fusion September 21, 2022. Patient back in her room recovering well as in stable condition. Continue soft collar for comfort. Multimodal pain management. Discharge home today in stable condition. Status at Discharge Cognitive/behavioral status at discharge: at baseline, oriented Exam Vital Signs (past 8 hours): - 09/22/22 00:11 09/22/22 03:00 09/22/22 03:26 Temperature 97.4 F L 97.1 F L Pulse Rate 46 L 90 96 H Respiratory Rate 16 16 Blood Pressure 120/63 113/56 L Pulse Oximetry 97 95 92 Oxygen Flow Rate 4 2 0 Oxygen Delivery Method Nasal Cannula Oxygen Flow Rate 0 Narrative Exam Narrative: 72-year-old female resting comfortably in bed in no apparent distress. Soft collar for comfort. Dressing is clean, dry and intact. Motor functions intact bilateral upper extremities. Sensation grossly intact to light touch bilateral upper extremities. Const General: cooperative and comfortable Nutritional Appearance: obese (BMI 42.8) Orientation: alert Resp Effort & Inspection: normal respiratory effort and able to speak in complete sentences PFSH Medical History Cervical disc disorder at C6-C7 level with radiculopathy Depression Facet arthropathy, lumbar Heart murmur HLD (hyperlipidemia) HTN (hypertension) Kidney stones Lumbar radiculopathy Neck pain ELENI on CPAP Pre-diabetes Rash (04/14/22) Seasonal allergies Spinal stenosis SVT (supraventricular tachycardia) (~2002) Surgical History History of appendectomy History of bunionectomy of right great toe History of History of hysterectomy History of urologic surgery Hx of colonoscopy Hx of lithotripsy Hx of right cataract extraction Status post right foot surgery [place] teeth removed Social History marital status: household members: family Smoking Status: Never smoker alcohol intake: never Discharge Assessment & Plan Assessment and Plan Assessment: Patient progressing as expected status post cervical fusion Plan of Treatment: Soft collar for comfort Limit bending, twisting, lifting Multimodal pain management Discharge home today in stable condition Discharge Plan Discharge Plan Patient Disposition: Home Discharge orders & Medications Prescriptions: New oxycodone 5 mg Tablet 5 mg PO Q3H PRN (Reason: Pain, Moderate (4-6)) Qty: 30 0RF polyethylene glycol 3350 17 gram Powder In Packet 17 g PO DAILY PRN (Reason: Constipation) Qty: 14 0RF Continued baclofen 10 mg tablet 10 mg PO TID PRN (Reason: Spasms) magnesium 250 mg Tablet 500 mg PO BEDTIME omega [id number]-[id number]-fish oil [Fish Oil] 1,000 mg (120 mg-180 mg) Capsule 1 cap PO BEDTIME citalopram [Celexa] 20 mg tablet 40 mg PO BEDTIME acetaminophen 325 mg Tablet 650 mg PO Q6HR PRN (Reason: Pain, Mild (1-3)) Qty: 120 0RF hydrochlorothiazide 25 mg tablet 25 mg PO BEDTIME lovastatin 40 mg tablet 40 mg PO QPM Follow up/Referrals: Julianne Rueda MD [Physician] - As previously scheduled (Follow up with Newton Ruiz PA-C, on 10/05/2022 @ 1:30 pm at [facility] in [place].) Morenita Zimmer MD [Primary Care Provider] - Diet/Activity/Treatments Diet: Diet as Tolerated Activity: Soft cervical collar for comfort only; may have off to eat and shower. Recommend wearing if sitting or standing/walking for long periods of time. Some people do feel more comfortable sleeping with it on, but that is not necessary. No lifting more than 10 pounds. Cold/Heat Therapy: Heating pad to back of neck/between shoulder blades as needed for pain. Skin/Wound/Dressing Care Report to your healthcare provider any signs of infection, such as:: chills, fever, night sweats, unusual drainage and unusual redness Dressing: May shower. If dressing becomes wet inside, may remove. Leave steri strips in place until follow up in office. No bathing or otherwise soaking incision. Visit Report/Discharge Packet Instructions: DI for Prescription Opioid Use, DI for Anterior Cervical Discectomy and Fusion Stand Alone Forms: Patient Portal/API, Stroke Signs & Symptoms, Surgery Discharge Discharge Data Primary Care Provider: Morenita Zimmer Quality VTE Deep Vein Thrombosis/Pulmonary Embolism Present on Admission: No
[2022-09-22 08:13] VITALS: BP 139/68; PULSE 87; RESP 15; TEMP 36.2; O2SAT 95
[2022-09-22] MEDS: DOCUSATE 100 MG CAPSULE PO (08:13)
[2022-09-22] MEDS: SODIUM CHLORIDE 0.9% FLUSH 10 ML IV (08:15)
--- NOTE | 2022-09-22 09:26 | CM.DANOTE ---
DCP Assessment Note: Patient is a 72yo female here following planned cervical surgery with Dr. Rueda on 09.21.22. PCP Morenita Zimmer Payer Nino and self pay HIDE AND SKIN FLESHING MACHINE OPERATOR reviewed EMR. Per PA d/c summary, home with family today. HIDE AND SKIN FLESHING MACHINE OPERATOR entered room and introduced self and role. Patient was sitting up eating breakfast and appeared A/Ox4. Patient reports she lives at home with her two adult children (daughter Jesika [phone] or son Carlos [phone]) and three grandchildren. Patient is active/independent/drives at baseline. Patient reports like she feels like she did well with OT. Patient reports wanting to go home. Patient asked for a business card from this HIDE AND SKIN FLESHING MACHINE OPERATOR Plan: d/c home when medically stable, likely this afternoon. Transport with daughter in POV, ride at 1400. CM team will continue to follow as needed. YVES Mireles Discharge Planning/Care Management CM Discharge Assessment Start: 09/22/22 09:24 Freq: Status: Active Protocol: Document 09/22/22 09:24 SL (Rec: 09/22/22 09:26 [id number]) Discharge Planning Assessment Assigned Director Health YVES Lee DPOA/Assigned Designee Name Jesika (daughter) Contact Information [phone] Advance Directives? No Advance Directives on File No History Provided By Patient,Medical Record Prior Living Arrangements House Household Members family Comment lives with two adult children, three grandchildren Type of transporation used prior to Drives own vehicle admit Independent with ADL's Yes Is patient alert and oriented? Yes Comment Patient says she has 3 dogs, lives w/her children however they work fulltime, has grandchildren that attend school Discharge Plan Home Transportation Arrangement daughter in POV Whiteboard Updated in Patient Room with Yes name and ext. # of Director Health Comment HIDE AND SKIN FLESHING MACHINE OPERATOR gave patient CM card Review Status In Process Next Review Type Continued Stay Review Pre-Anesthesia Assessment Start: 09/14/22 16:32 Freq: Status: Complete Protocol: Document 09/14/22 16:32 TC (Rec: 09/14/22 16:40 TC [id number]) Pre-Anesthesia Assessment Patient Information Reviewed Via Chart Review Primary Care Provider Morenita Zimmer Medical Clearance Received Not Applicable Seen Specialist in Last 12 Months Yes Specialist Seen Emergency,Orthopedist Preferred Language Nepali Height 152.4 cm Weight 99.337 kg Body Mass Index (BMI) 42.7 Hx Anesthesia Reactions No: They say I have a small mouth with small airway Hx Family Anesthesia Reaction No Hx Malignant Hyperthermia No Hx Blood Transfusions No Hx Blood Transfusion Reaction No Anesthesia Review Requested No Ball Truing Machine Operator No alcohol intake never Smoking Status Never smoker Substance Use Type does not use Musculoskeletal Symptoms Back Pain Mental Status Oriented to own ability Is patient on oxygen? No Does patient have GUIDRY/SOB Yes: GUIDRY Hx Sleep Apnea Yes CPAP/BIPAP use prescribed and used routinely Can You Climb a Flight of Stairs Without No SOB Hx Chest Pain No Hx SOB Yes: GUIDRY Hx Syncope or Dizziness Yes: Dizziness with change in positions Anti-Coagulant Therapy No Cardiac Testing No Hx Pacemaker/ICD No Pacemaker Rep Required? No Cardiac Clearance Received Not Applicable Urinary Catheter Present No Hx Urinary Self Catheterization No Diabetes No Patient No Lactating No Hx Drug Resistant Organism No Presence of External or Internal Medical Yes: Right eye IOL. lumbar Devices hardware Received a COVID vaccine? Yes Lives With family Patient Discharge Plan Description Return Home,Fpc Facility/Rehab Do You Have Any Spiritual Beliefs That No May Affect Your HC Choices? Do You Have Any Cultural Practices That No May Affect Your HC Choices? Emergency Contact Name Carlos (son) Jesika (daughter) Emergency Contact Phone Number Carlos: [phone] Jesika: [phone] Advance Directives? No Advance Directives on File No Power of Roller No Stop Bang Assessment Do you snore loudly (louder than talking Yes or loud enough to be heard through closed doors) Do you often feel tired, fatigued or Yes sleepy during the daytime Has anyone ever observed you stop Yes breathing while sleeping? Do you have, or are you being treated Yes for, high blood pressure Is your BMI more than 35 kg/m2 Yes Age over 50 Yes Estimated neck circumference greater Yes than 40cm or 16in Gender male No Result Positive
--- NOTE | 2022-09-22 09:34 | OT.IP.EVAL ---
Current Diagnoses Spondylolisthesis, cervical region (09/21/22) Spinal stenosis, cervical region (09/21/22) Surgery Performed Operation Date: 09/21/22 11:45 Actual Procedures p C4-5, C5-6 ACDF w. anterior instrumentation - Julianne Rueda MD Past Medical History (Last Reviewed 09/22/22 @ 07:48 by Newton Ruiz PACrista) Cervical disc disorder at C6-C7 level with radiculopathy Depression Facet arthropathy, lumbar Heart murmur HLD (hyperlipidemia) HTN (hypertension) Kidney stones Lumbar radiculopathy Neck pain ELENI on CPAP Pre-diabetes Rash (04/14/22) Seasonal allergies Spinal stenosis SVT (supraventricular tachycardia) (~2002) Surgical History (Last Reviewed 09/22/22 @ 07:48 by Newton Ruiz PA-C) History of appendectomy History of bunionectomy of right great toe History of History of hysterectomy History of urologic surgery Hx of colonoscopy Hx of lithotripsy Hx of right cataract extraction Status post right foot surgery [place] teeth removed Occupational Therapy Inpatient Evaluation/Re-Eval M1 PT/OT-IP Prior Functional Status Start: 09/22/22 10:08 Freq: NEEDED Status: Active Protocol: Document 09/22/22 09:34 [facility] (Rec: 09/22/22 10:25 [facility] [id number]) Medical Review Prior Functional Status Communication independent Mobility and Gait Pt state did not use a device prior to this surgery but after her recent back surgery on 04/19/22 would use the FWW downstairs and then the 4ww upstairs. Activities of Daily Living and IADL's Increased time and pain with ADL and IADL needs. Social History Household Members family Living Arrangements House Number of Floors (Floors) Two Floors Number of Stairs To Enter/Railing? 5 steps with bilateral rails in the front. 6 steps with wall to the back to let the dogs out. Approx 17 steps with landing in the middle to the bedroom. Home Environment Standard Height Toilet,Walk in Shower Home Equipment Front Wheel Walker,Four Wheel Walker,Straight Cane M2 OT-IP Current Condition Start: 09/22/22 10:08 Freq: Status: Active Protocol: Document 09/22/22 09:34 [facility] (Rec: 09/22/22 10:25 [facility] [id number]) Occupational Therapy Current Condition Current Condition Evaluation Date 09/22/22 Treatment Diagnosis S/P C4-5, C5-6 ACDF Diagnosis Onset Date 09/21/22 Post Operative Precautions Cervical Spine Precautions Soft Collar for Comfort,No Heavy Lifting,Log Roll M3 OT- IP Subjective and Pain Start: 09/22/22 10:08 Freq: Status: Active Protocol: Document 09/22/22 09:34 [facility] (Rec: 09/22/22 10:25 [facility] [id number]) OT- Subjective Occupational Therapy Visit Type Type Initial Evaluation Visit Start Time 09:34 Visit Stop Time 09:55 Total Visit Minutes 21 Occupational Therapy Visit Comments Patient Comments Pt already sitting up and agreed to get up. Patient/Caregiver Goals TO go home. OT Pain Assessment Pain When Pain Assessed At Rest Pain Present Pain Present Pain Reported Location Neck Intensity 5 Scale Used Numeric (0 - 10) M4 OT- IP ADL's Start: 09/22/22 10:08 Freq: Status: Active Protocol: Document 09/22/22 09:34 [facility] (Rec: 09/22/22 10:25 [facility] [id number]) OT [id number] Comments OT Self-Feeding Comments Educated and gave pt information on swallowing after cervical sx. Pt was eating mcduffie and aware to chew food thoroughly and sit upright. Suggested that pt eat softer food initially. OT ADL-Grooming General Evaluation Grooming Ability Independent OT ADL-Oral Care General Eval Oral Care Ability Independent Comments Oral Care Comments Educated best to spit into a cup. OT ADL-Dressing General Eval Lower Body Dressing Ability Standby Assistance Comments OT Dressing Comments Pt able to osbaldo/doff her soft collar with increased time. Pt able to put her slippers on . Pt has a pulmonary nurse practitioner to be able to assist with her LB dressing needs. OT ADL-Toileting Comments OT Toileting Comments Pt states went earlier and states has no issues to be able to wipe. Able to tell pt options of use of wet wipes, obtain a toilet paper aid to increase ease and completeness for hygiene needs. OT ADL-Bathing Comments OT Bathing Comments Recommended pt get a shower chair last time after back surgery and pt states did not needs it and insists that she will be fine not getting one after having cervical x. M5 OT- IP IADL's Start: 09/22/22 10:08 Freq: Status: Active Protocol: Document 09/22/22 09:34 [facility] (Rec: 09/22/22 10:25 [facility] [id number]) OT-Instrumental Activities of Daily Living Deficits IADL Deficits Identified Deficits Home Safety Awareness Awareness of Need for Assistance at Home Decreased Awareness Ability to Problem Solve Emergency Able to Problem Solve Situations Home Safety Comments Pt states her family can help her when they are present after work. M6 OT- IP Functional Cognition Start: 09/22/22 10:08 Freq: Status: Active Protocol: Document 09/22/22 09:34 [facility] (Rec: 09/22/22 10:25 [facility] [id number]) Cognitive Factors Limiting Selfcare Function Cognitive Ability Level of Alertness Alert Patient Orientation Name,Place,Situation Attention Span Ability Capable of Focused Attention, Capable of Sustained Attention Ability to Follow Commands Able to Follow One Step Commands Safety Awareness Underestimates Need for Assistance Cognitive Comments Cognitive Assessment Comments Pt able to follow commands for cervical precautions, however at times a little insistent on her care. Suggested at this time that pt uses the FWW/4ww as a little unsteady on her feet at times. Pt not open to obtaining shower chair or toilet paper aid at this time and feels it is not needed for her completeness and safety. OT- Vision and Hearing OT- Vision Assessment Visual Acuity Glasses All The Time Vision Assessment Comments Glasses for distance. M7 OT- IP Mobility and Balance Start: 09/22/22 10:08 Freq: Status: Active Protocol: Document 09/22/22 09:34 [facility] (Rec: 09/22/22 10:25 [facility] [id number]) OT-Transfer Assessment Sit to and From Stand Sit to and from Stand Standby Assistance Transfers Transfer Ability Standby Assistance,Contact Guard Assistance Technique Transfer Destination Chair Transfer Technique Stand Step Pivot Devices Transfer Assistive Devices Gait Belt,Front Wheeled Walker Comments Mobility Comments Pt initially walking without the FWW and having a wider base of support and occasional use of surface to hold. Had pt use the FWW and much safer and SBA. BP 122/62 OT- Balance Assessment Sitting Balance and Reactions Static Sitting Balance Ability Normal Dynamic Sitting Balance Ability Good Standing Balance and Reactions Static Standing Balance Ability Good Dynamic Standing Balance Ability Fair M9 OT- IP Assessment and Plan Start: 09/22/22 10:08 Freq: Status: Active Protocol: Document 09/22/22 09:34 [facility] (Rec: 09/22/22 10:25 [facility] [id number]) OT Summary Assessment and Plan Potential Rehabilitation Potential Good Analytic Complexity at Evaluation Low Summary OT Impairments Pain,Balance,Functional Mobility,Dressing,Toileting, Bathing,Toilet Transfers, Shower Transfers Progress Towards Goals Progressing Toward Goals Assessment Summary Pt low complexity and main barriers are steps, pain, and pt needing safety reminders for mobility and ADl needs. Pt looking to go home with family to assist when not at work. Goals Self-Feeding Goal Independent Grooming Goal Independent Dressing Goal Independent Toileting Goal Independent Bathing Goal Independent Toilet Transfer Goal Independent Shower Transfer Goal Independent Patient/Caregiver Education Goal Demonstrate Post-Op Precautions Days to Meet Goals 7 Frequency of Treatment Frequency Of Treatment Once a Day Treatment Plan OT Treatment Plan ADL Training,Functional Mobility,Patient/Family Education,Discharge Planning Discharge Recommendations OT Discharge Recommendations Home with Assistance Transportation Needs at Discharge Private Vehicle
--- NOTE | 2022-09-22 10:10 | PT.IIE ---
Current Diagnoses Spondylolisthesis, cervical region (09/21/22) Spinal stenosis, cervical region (09/21/22) Surgery Performed Operation Date: 09/21/22 11:45 Actual Procedures p C4-5, C5-6 ACDF w. anterior instrumentation - Julianne Rueda MD Surgical History (Last Reviewed 09/22/22 @ 07:48 by Newton Ruiz PA-C) History of appendectomy History of bunionectomy of right great toe History of History of hysterectomy History of urologic surgery Hx of colonoscopy Hx of lithotripsy Hx of right cataract extraction Status post right foot surgery [place] teeth removed Medical History (Last Reviewed 09/22/22 @ 07:48 by Newton Riuz PA-C) Cervical disc disorder at C6-C7 level with radiculopathy Depression Facet arthropathy, lumbar Heart murmur HLD (hyperlipidemia) HTN (hypertension) Kidney stones Lumbar radiculopathy Neck pain ELENI on CPAP Pre-diabetes Rash (04/14/22) Seasonal allergies Spinal stenosis SVT (supraventricular tachycardia) (~2002) Physical Therapy Inpatient Evaluation/Re-Eval M1 PT/OT-IP Prior Functional Status Start: 09/22/22 13:53 Freq: NEEDED Status: Active Protocol: Document 09/22/22 10:10 AB (Rec: 09/22/22 14:10 AB [id number]) Medical Review Prior Functional Status Medical History Reviewed Yes Communication able to make needs known Mobility and Gait pt stated that she is modified independent with all mobilities and ambulation without AD Activities of Daily Living and IADL's per OT note: Increased time and pain with ADL and IADL needs. Social History Household Members family Living Arrangements House Number of Floors (Floors) Two Floors Number of Stairs To Enter/Railing? 5 steps with bilateral side rails in the front to enter and can only hold on to one rail at a time has 10 steps without rails but with curiel on each side to get to 2nd level bedroom Home Environment Standard Height Toilet,Tub/ Shower Home Equipment Front Wheel Walker,Four Wheel Walker,Straight Cane,Hand Held Shower Additional Social History Comment pt has her son/DIL and 3 grandchildren at home with her to assist when needed pt plans to sleep on her recliner chair initially when she goes home M2 PT-IP Current Condition Start: 09/22/22 13:53 Freq: NEEDED Status: Active Protocol: Document 09/22/22 10:10 AB (Rec: 09/22/22 14:10 AB [id number]) Physical Therapy Current Condition Current Condition Evaluation Date 09/22/22 Treatment Diagnosis s/p C4-5,C5-6 ACDF; difficulty in walking Onset Date 09/21/22 M3 PT-IP Subjective Start: 09/22/22 13:53 Freq: NEEDED Status: Active Protocol: Document 09/22/22 10:10 AB (Rec: 09/22/22 14:10 AB [id number]) Subjective Physical Therapy Visit Type Type Initial Evaluation Visit Start Time 10:10 Visit Stop Time 10:26 Total Visit Minutes 16 Number of ENGINE MECHANIC Visits 0 Physical Therapy Visit Comments Patient Comments agreeable to do PT Therapy Pain Assessment Pain When Pain Assessed At Rest Pain Present Pain Present Pain Reported Location Neck Intensity 3 Scale Used Numeric (0 - 10) Pain Management Techniques Apply Cold,Distraction, Modification of Treatment,Re- positioning,Timing of Activity with Medications M4 PT-IP Mobility and Gait Start: 09/22/22 13:53 Freq: NEEDED Status: Active Protocol: Document 09/22/22 10:10 AB (Rec: 09/22/22 14:10 AB [id number]) PT-Bed Mobility Assessment Rolling Type of Rolling Log Rolling Level of Assist Standby Assistance Supine to Sit Supine to Sit Standby Assistance,Bedrails Sit to Supine Sit to Supine Standby Assistance,Bedrails PT-Transfer Assessment Sit to and From Stand Sit to and from Stand Standby Assistance Equipment Transfer Assistive Device Gait Belt,Front Wheeled Walker Orthotic/Prosthetic Devices or Brace: No Comments Mobility Comments pt supine in bed and agreeable to do PT. pt had OT this morning and stated that she knows her precautions and knows how to manage her cervical collar. pt completed log roll supine to sit SBa with use of bed rail. pt stated that she plans to use her recliner to sleep on after d/c. pt ambulated using FWW towards the stairs ~ 250 ft SBA. completed up/ down stair using 1 rail SBA. also completed up/down platform step without rails/ad SBA. ambulated back to her room SBA using FWW. pt able to ambulate in room without AD SBA ~ 5 ft. pt requested to go back to bed. sit to supine log roll sBA. positioned in bed. call light and table placed within reach. Gait Assessment Gait Gait Assistance Required: Standby Assistance Distance (Feet) 250 Able to Maintain Weight Bearing Status Yes During Gait Assistive Devices Assistive Device None,Gait Belt,Front Wheeled Walker Orthotic/Prosthetic Devices or Brace: No Gait Deviations General Gait Pattern Antalgic,Decreased Stride Length,Decreased Feet Clearance Factors Limiting Gait Function Factors Limiting Gait Function Decreased Strength,Limited Range of Motion,Pain,Poor Balance,Poor Safety Awareness Stair Climbing Assessment Evaluation Level of Assist On Stairs Standby Assistance Devices Stair Climbing Assistive Devices None,Left Railing Technique/Endurance Stair Climbing Direction Ascend and Descend Stair Climbing Technique Step to Step Number of Steps Climbed 3 Query Text: Stair Climbing Set # Repetitions (reps) 1 Comments Stair Climbing Comments pls refer to mobility section for details PT-Balance Assessment Sitting Balance and Reactions Static Sitting Balance Ability Normal Dynamic Sitting Balance Ability Normal Standing Balance and Reactions Static Standing Balance Ability Good Dynamic Standing Balance Ability Good Device Used using fWW M5 PT-IP Objective Assessments Start: 09/22/22 13:53 Freq: NEEDED Status: Active Protocol: Document 09/22/22 10:10 AB (Rec: 09/22/22 14:10 AB [id number]) Orientation Orientation/Cognition Level of Alertness Alert Orientation Name,Place,Situation Language Function Ability No Deficits Noted Safety Awareness Decreased Safety Awareness Memory Description No Deficits Noted Gross Range of Motion Lower Extremity ROM Assessment Within Functional Limits Strength Lower Extremity Strength Assessment Within Functional Limits Coordination Assessment Gross Coordination Gross Coordination WNL Muscle Tone Muscle Tone WNL Yes M6 PT-IP Treatment Start: 09/22/22 13:53 Freq: NEEDED Status: Active Protocol: Document 09/22/22 10:10 AB (Rec: 09/22/22 14:10 AB [id number]) Physical Therapy Treatment Education Education Provided Precautions,Weight Bearing Status,Safety M7 PT-IP Assessment and Plan Start: 09/22/22 13:53 Freq: NEEDED Status: Active Protocol: Document 09/22/22 10:10 AB (Rec: 09/22/22 14:10 AB [id number]) PT Summary Assessment and Plan Potential Rehabilitation Potential Good Status of Condition at Evaluation Stable Summary Impairments Pain,ROM,Strength,Balance, Coordination,Sensation,Tone, Cognition,Bed Mobility, Transfers,Gait,Activity Tolerance Assessment Summary pt s/p C4-5, C5-6 ACDF POD1. pt requiring SBA with mobility using FWW and plans to go home with family to assist her . pt may go home when medically stable. Goals Bed Mobility Goal Independent Transfer Goal Independent,Front Wheeled Walker Gait Goal Independent,Front Wheel Walker Gait Distance 300 Other Goals improve transfers and ambulation without AD mod I > 300 ft up/down 5 steps 1 rail mod I up/down 10 steps without rail mod I Days to Meet Goals 3 Frequency of Treatment Frequency Of Treatment Twice a Day Treatment Plan Physical Therapy Treatment Plan Bed Mobility Training,Transfer Training,Gait Training, Therapeutic Exercise,Balance Retraining,Post Op Education, Discharge Planning,Hot or Cold Pack,Neuromuscular Re-ed, Coordination Retraining,Manual Therapy Precautions Cervical Spine Precautions Soft Collar for Comfort,No Heavy Lifting,Log Roll Recommendations To Nursing Amount of Assist Needed Standby Assistance Discharge Recommendations PT Discharge Recommendations Home with Assistance Transportation Needs at Discharge Private Vehicle
--- NOTE | 2022-09-22 15:10 | PC.NURSE ---
Day shift: Discharge instructions gone over with patient. Answered all questions and patient stated understanding. PIV d/c'ed prior to discharge. Pt left via wheelchair with VALARIE Shankar. Pt's daughter and grandson here to pick her up. All belongings with patient.
== END 2022-09-22 15:11 | disposition home or self-care (01) | DRG 472 ==
PROVIDERS: Admitting Provider Orthopaedic Surgery Orthopaedic Surgery of the Spine; PCP Family Medicine; Referring Provider Family Medicine; Visit Provider Orthopaedic Surgery Orthopaedic Surgery of the Spine
PROC: 0RG20A0 Fusion of 2 or more Cervical Vertebral Joints with Interbody Fusion Device, Anterior Approach, Anterior Column, Open Approach (ICD-10-PCS; principal; 2022-09-21 11:45)
DX: M48.02 Spinal stenosis, cervical region (principal); Z68.41 Body mass index [BMI] 40.0-44.9, adult; M47.22 Other spondylosis with radiculopathy, cervical region; M43.12 Spondylolisthesis, cervical region; I10 Essential (primary) hypertension; E66.9 Obesity, unspecified; E78.5 Hyperlipidemia, unspecified; F32.A Depression, unspecified
CPT/HCPCS: 72040; 76000; 97161; 97165; 97535; A9270; C1713; J0330; J0690; J1100; J1170; J2405; J2704; J3010; J3410